=== PATIENT | female | born 1935 | race Hispanic/Latino ===

== ENCOUNTER 2016-10-27 10:29 | Inpatient (IN) | payer OTHER, MEDICARE ==
[~2016-10-27] VITALS: Ht 154.9 cm; Wt 40.0 kg
--- NOTE | 2016-10-27 11:36 | NUR ---
81 YO FEMALE BIBA FROM [facility], ACCORDING TO TRANSFER NOTE, PT WAS FOUND ON FLOOR. ? PT FELL TO FLOOR, UNKNOWN WHEN. PT REPORTS PAIN TO RIGHT CATHOLIC AREA. PT AWAKE, ALERT X 2. DISORIENTED TO TIME AND NAME OF HOSPITAL, PRESIDENTS NAME. PT HAS DRESSINGS INTACT TO BILATERAL LOWER LEGS, PT DID NOT WANT US TO TOUCH THEM. THIS RN DID NOT RECEIVE REPORT ON PT.
--- NOTE | 2016-10-27 11:37 | NUR ---
PT EVALUATED BY LEONELA SCHROEDER
--- NOTE | 2016-10-27 11:37 | NUR ---
PT SENT TO CT SCAN
--- NOTE | 2016-10-27 11:37 | ED GENERAL ADULT ---
History of Present Illness General Chief Complaint: Fall Stated Complaint: FALL Source: patient, EMS, W10 Exam Limitations: confusion Vital Signs & Intake/Output Vital Signs & Intake/Output Vital Signs Date Time Temp Pulse Resp B/P Pulse O2 O2 Flow FiO2 Ox Delivery Rate 10/27 1304 97.8 82 20 177/74 96 Room Air 10/27 1249 96 Room Air 10/27 1038 97.5 86 18 134/60 96 Allergies Coded Allergies: NO KNOWN ALLERGIES (10/27/16) Reconcile Medications Amlodipine Besylate 5 MG TABLET 1 TAB PO DAILY HIGH BLOOD PRESSURE (Reported) Calcium Citrate/Vitamin D3 (Citracal + D Maximum Caplet) 315 MG-250 UNIT TABLET 1 TAB PO BID HEALTH SUPPLEMENT (Reported) Famotidine (Pepcid) 20 MG TABLET 1 TAB PO BID HEARTBURN (Reported) Ferrous Sulfate (High Potency Iron) 134 MG (27 MG) TABLET 65 MG PO D HEALTH SUPPLEMENT (Reported) Furosemide (Lasix) 40 MG TABLET 1 TAB PO DAILY HEART HEALTH (Reported) Levothyroxine Sodium 25 MCG TABLET 1 TAB PO DAILY THYROID HEALTH (Reported) Prednisone 5 MG TABLET 1 TAB PO BID HEALTH SUPPLEMENT (Reported) Triage Nurses Notes Reviewed? yes Onset: Abrupt Duration: unknown duration Timing: recent history (?) No Modifying Factors: none HPI: 81-year-old female that was here prior to my arrival that was supposedly brought in by ambulance had a reported fall. Patient has baseline confusion in the room. It is unclear as to whether this is the patient's normal baseline. There is no family at bedside. There is no report from nurse. Patient reports that she is experiencing some head pain after a fall. Denies any other symptoms or pain anywhere else in his body. I am in the process of getting more collateral. (LEONELA BAÑUELOS) Past History Travel History Traveled to [place] past 21 day No Medical History Any Pertinent Medical History? see below for history (unknown) Surgical History Surgical History: unobtainable Psychosocial History What is your primary language [place]ian Family History Hx Contributory? No (LEONELA BAÑUELOS) Review of Systems Review of Systems Constitutional: Reports: no symptoms. EENTM: Reports: no symptoms. Respiratory: Reports: no symptoms. Cardiovascular: Reports: no symptoms. GI: Reports: no symptoms. Genitourinary: Reports: no symptoms. Musculoskeletal: Reports: no symptoms. Skin: Reports: no symptoms. Neurological/Psychological: Reports: see HPI. Hematologic/Endocrine: Reports: no symptoms. Immunologic/Allergic: Reports: no symptoms. All Other Systems: Reviewed and Negative (LEONELA BAÑUELOS) Physical Exam Physical Exam General Appearance: alert, awake Head: atraumatic, normal appearance Eyes: Bilateral: normal appearance, EOMI. Ears, Nose, Throat: normal ENT inspection, hearing grossly normal Neck: normal inspection Respiratory: normal breath sounds, no respiratory distress Cardiovascular: regular rate/rhythm Gastrointestinal: soft, non-tender Back: normal inspection Extremities: normal inspection, normal range of motion Neurologic/Psych: awake, alert, oriented x 3, normal gait Skin: intact, normal color Core Measures ACS in differential dx? Yes CVA/TIA Diagnosis: No Severe Sepsis Present: No Septic Shock Present: No (LEONELA BAÑUELOS) Progress Differential Diagnoses I considered the following diagnoses in my evaluation of the patient: Intracranial bleed, cervical fracture, UTI, sepsis, TIA, cardiac arrhythmia, looks a lot imbalance, anemia, concussion, fracture, Plan of Care: Orders Procedure Date/time Status Regular Diet 10/28 D Active Heart Healthy Diet 10/27 D Active Telemetry/Printing Press Operator 10/27 1458 Active Patient Data 10/27 1446 Active OXYGEN SETUP (GEN) 10/27 1443 Active Saline Lock 10/27 1443 Active Admit to inpatient 10/27 1443 Active Vital Signs 10/27 1443 Active Activity/Ambulation 10/27 1443 Active Code Status 10/27 1443 Active Intake & Output 10/27 1249 Active CULTURE,URINE 10/27 1128 Active URINALYSIS 10/27 1128 Complete TROPONIN LEVEL 10/27 1128 Complete COMPREHENSIVE METABOLIC PANEL 10/27 1128 Complete CBC WITHOUT DIFFERENTIAL 10/27 1128 Complete EKG 10/27 1128 Active Current Medications Sig/Jens Start time Last Medication Dose Stop Time Status Admin Oxycodone HCl 10 MG ONCE ONE 10/27 1515 CAN (Roxicodone) 10/27 1516 Laboratory Tests 10/27/16 1442: Urine Color YEL, Urine Clarity CLEAR, Urine pH 7.0, Ur Specific Dalhart 1.025, Urine Protein 100 H, Urine Ketones NEG, Urine Nitrite NEG, Urine Bilirubin NEG, Urine Urobilinogen 1.0, Ur Leukocyte Esterase TRACE H, Ur Microscopic SEDIMENT EXAMINED, Urine WBC 25-50 H, Ur Epithelial Cells RARE, Urine Hemoglobin NEG, Urine Glucose NEG 10/27/16 1228: Anion Gap 4 L, Estimated GFR 53 L, BUN/Creatinine Ratio 25.0, Glucose 86, Calcium 8.1 L, Total Bilirubin 0.9, AST 26, ALT 65 H, Alkaline Phosphatase 90, Troponin I 0.12 *H, Total Protein 6.3, Albumin 3.0 L, Globulin 3.3, Albumin/ Globulin Ratio 0.9 L, CBC w Diff MAN DIFF ORDERED, RBC 3.13 L, MCV 92.4, MCH 28.9, RDW 20.3 H, MPV 8.8, Gran % 86.9 H, Lymphocytes % 6.7 L, Monocytes % 5.5, Eosinophils % 0.4, Basophils % 0.5, Absolute Granulocytes 8.3 H, Segmented Neutrophils 83 H, Band Neutrophils 6 H, Absolute Lymphocytes 0.6 L, Lymphocytes 7 L, Monocytes 3, Absolute Monocytes 0.5, Absolute Eosinophils 0, Basophils 1, Absolute Basophils 0.1, Platelet Estimate ADEQUATE, Polychromasia 1 +, Hypochromic-Microcytic 1+, Poikilocytosis 1+, Stomatocytes 2+, PUBS MCHC 31.3 L, Fld Total RBCs Counted 100 Microbiology 10/27 1442 URINE ROUT: Urine Culture - RECD Diagnostic Imaging: Viewed by Me: Radiology Read, CT Scan. Discussed w/RAD: Radiology Read, CT Scan. Radiology Impression: EXAM TYPE: RAD - XRY-PORTABLE CHEST XRAY EXAMINATION: XR PORTABLE CHEST CLINICAL INFORMATION: Status post fall, confusion. COMPARISON: None. TECHNIQUE: AP erect portable chest x-ray. FINDINGS: The heart is moderately to markedly enlarged. The cardiomediastinal silhouette is within normal limits. There is mild cephalization of the pulmonary vasculature suggested with mild diffuse increase in interstitial markings, right side greater than left. Acute versus acute on chronic or chronic changes. Developing pulmonary vascular congestion and edema are possible, clinical correlation recommended, however there are no pleural effusions. There is moderate atherosclerotic aortic calcification with a tortuous descending thoracic aorta. The lungs and pleural spaces otherwise appear clear without focal infiltrate. There is no evidence of pneumothorax. There is diffuse osteopenia with degenerative changes in the left shoulder. IMPRESSION: The heart is enlarged, question mild pulmonary vascular congestion. Increased interstitial markings, acute versus chronic. In the acute setting an atypical or viral pneumonia for developing pulmonary edema are possible., EXAM TYPE: CAT - CT CERV SPINE WO IV CONTRAST; CT HEAD WO IV CONTRAST EXAMINATION: CT HEAD WITHOUT CONTRAST CT CERVICAL SPINE WITHOUT CONTRAST CLINICAL INFORMATION: 81-year-old woman with fall, headache, and neck pain. COMPARISON: None. TECHNIQUE: Imaging was performed from the skull base to vertex without intravenous administration of contrast. In addition, helical noncontrast CT imaging was acquired through the cervical spine and source images were reviewed along with axial reconstructions and sagittal and coronal MPRs. DLP: 902 mGy-cm FINDINGS: HEAD: No intracranial mass, hemorrhage, or midline shift is visualized. The ventricles and sulci are mildly prominent due to chronic volume loss. Mild chronic microvascular ischemic changes are seen throughout the supratentorial white matter as well. No extra- axial collections are identified. The paranasal sinuses and mastoid air cells are well aerated. Mild soft tissue swelling is noted at the right parietal convexity. CERVICAL SPINE: There is no evidence of acute cervical spine fracture. Vertebral bodies remain normal in height, intervertebral disc spaces are preserved, and alignment is anatomic. No pre- or paravertebral soft tissue abnormality is identified. Limited assessment of the lung apices is notable for mild nonspecific groundglass opacity at the right lung apex of uncertain chronicity. IMPRESSION: 1. No acute intracranial pathology. 2. No CT evidence of acute cervical spine fracture or traumatic subluxation. DICTATED BY: THOR COUGHLIN MD DATE/TIME DICTATED:10/27/161214 VEHICLE REFINISHER:DELANEY DATE/TIME TRANSCRIBED:10/27/161214 Initial ED EKG: normal p-waves, normal sinus rhythm, rate (86), nonspecific ST T wave chg, ST depression (v3,v4) (LEONELA BAÑUELOS) Departure Departure Disposition: STILL A PATIENT Condition: Stable Clinical Impression Primary Impression: Acute electrocardiogram changes Secondary Impressions: Troponin level elevated Referrals: GINO ALCALA,FADY Jeong (PCP/Family) Departure Forms: Customer Survey General Discharge Information Admission Note Spoke With: Patricia GUTIERREZ MD Documentation of Exam: Documentation of any treatments & extenuating circumstances including Concerns Regarding Discharge (functional status, medication knowledge or non-compliance, living conditions, etc.) that warrant an admission rather than observation: Patient will require cardiac telemetry. Cardiac consultation. Serial troponins. Dr. kc spoke with dr gutierrez. (LEONELA BAÑUELOS) PA/[employer] TE[employer]ER Co-Sign Statement Statement: ED Attending supervision documentation- x I saw and evaluated the patient. I have also reviewed all the pertinent lab results and diagnostic results. I agree with the findings and the plan of care as documented in the PA's/[employer] TE[employer]ER's documentation. [] I have reviewed the ED Record and agree with the PA's/[employer] TE[employer]ER's documentation. [] Additions or exceptions (if any) to the PAs/[employer] TEACHER's note and plan are summarized below: [] (JOANNE ALCALA,ZIYAD) Critical Care Note Critical Care Note Critical Care Time: non-applicable (LEONELA BAÑUELOS)
--- NOTE | 2016-10-27 12:21 | CT SCAN REPORT ---
EXAMINATION: CT HEAD WITHOUT CONTRAST CT CERVICAL SPINE WITHOUT CONTRAST CLINICAL INFORMATION: 81-year-old woman with fall, headache, and neck pain. COMPARISON: None. TECHNIQUE: Imaging was performed from the skull base to vertex without intravenous administration of contrast. In addition, helical noncontrast CT imaging was acquired through the cervical spine and source images were reviewed along with axial reconstructions and sagittal and coronal MPRs. DLP: 902 mGy-cm FINDINGS: HEAD: No intracranial mass, hemorrhage, or midline shift is visualized. The ventricles and sulci are mildly prominent due to chronic volume loss. Mild chronic microvascular ischemic changes are seen throughout the supratentorial white matter as well. No extra-axial collections are identified. The paranasal sinuses and mastoid air cells are well aerated. Mild soft tissue swelling is noted at the right parietal convexity. CERVICAL SPINE: There is no evidence of acute cervical spine fracture. Vertebral bodies remain normal in height, intervertebral disc spaces are preserved, and alignment is anatomic. No pre- or paravertebral soft tissue abnormality is identified. Limited assessment of the lung apices is notable for mild nonspecific groundglass opacity at the right lung apex of uncertain chronicity. IMPRESSION: 1. No acute intracranial pathology. 2. No CT evidence of acute cervical spine fracture or traumatic subluxation.
--- NOTE | 2016-10-27 12:30 | NUR ---
PT BACK FROM CT SCAN
--- NOTE | 2016-10-27 12:35 | RADIOLOGY REPORT ---
EXAMINATION: XR PELVIS CLINICAL INFORMATION: Fall. Confusion. COMPARISON: None TECHNIQUE: AP view of the pelvis. FINDINGS: Evaluation limited by overlapping loops of mildly distended gas-filled bowel. Diffuse osteopenia. No definite acute fracture of the pelvic rings or bilateral hips. Pubic symphysis and sacroiliac joints intact with mild degenerative changes seen in the sacroiliac joints. Sacrum is obscured and not adequately assessed. Aortoiliac and femoral arterial calcifications are seen. IMPRESSION: 1. Limited study. Sacrum obscured by overlying bowel. 2. Diffuse osteopenia. No definite acute fracture of the pelvic rings or the hips. 3. Prominent atherosclerotic vascular calcifications.
[2016-10-27 12:38] LABS: ABSOLUTE BASOPHIL COUNT 0.1 /CUMM (0.0-0.2); ABSOLUTE EOSINOPHIL COUNT 0 /CUMM (0.0-0.7); ABSOLUTE GRANULOCYTE CT 8.3 /CUMM (1.4-6.5); ABSOLUTE LYMPH COUNT 0.6 /CUMM (1.2-3.4); ABSOLUTE MONOCYTE COUNT 0.5 /CUMM (0.10-0.60); BASOPHIL % 0.5 % (0.0-2.0); EOSINOPHIL % 0.4 % (0-5); GRANULOCYTE % 86.9 % (42.2-75.2); HEMATOCRIT 28.9 % (37-47); MEAN CORPUSCULAR HGB 28.9 PG (27.0-31.0); MEAN CORPUSCULAR HGB CONC 31.3 G/DL (33.0-37.0); MEAN CORPUSCULAR VOLUME 92.4 FL (81.0-99.0); MEAN PLATELET VOLUME 8.8 FL (7.4-10.4); PLATELET COUNT 214 /CUMM (130-400); RBC DISTRIBUTION WIDTH 20.3 % (11.5-14.5); RED BLOOD CELL CT 3.13 /CUMM (4.20-5.40); WHITE BLOOD CELL COUNT 9.6 /CUMM (4.8-10.8)
[2016-10-27] MEDS ORDERED: AMLODIPINE BESYL5 M1 PO (13:18)
[2016-10-27] MEDS ORDERED: LASIX40 M1 PO (13:18)
[2016-10-27] MEDS ORDERED: CITRACAL + D M1 EACH PO (13:19)
[2016-10-27] MEDS ORDERED: LEVOTHYROXINE25 MCG PO (13:22)
[2016-10-27] MEDS ORDERED: HIGH POTENCY I134 MG PO (13:22)
--- NOTE | 2016-10-27 13:22 | RADIOLOGY REPORT ---
EXAMINATION: XR PORTABLE CHEST CLINICAL INFORMATION: Status post fall, confusion. COMPARISON: None. TECHNIQUE: AP erect portable chest x-ray. FINDINGS: The heart is moderately to markedly enlarged. The cardiomediastinal silhouette is within normal limits. There is mild cephalization of the pulmonary vasculature suggested with mild diffuse increase in interstitial markings, right side greater than left. Acute versus acute on chronic or chronic changes. Developing pulmonary vascular congestion and edema are possible, clinical correlation recommended, however there are no pleural effusions. There is moderate atherosclerotic aortic calcification with a tortuous descending thoracic aorta. The lungs and pleural spaces otherwise appear clear without focal infiltrate. There is no evidence of pneumothorax. There is diffuse osteopenia with degenerative changes in the left shoulder. IMPRESSION: The heart is enlarged, question mild pulmonary vascular congestion. Increased interstitial markings, acute versus chronic. In the acute setting an atypical or viral pneumonia for developing pulmonary edema are possible.
[2016-10-27] MEDS ORDERED: PREDNISONE5 M1 PO (13:23)
[2016-10-27] MEDS ORDERED: PEPCID20 M1 PO (13:24)
--- NOTE | 2016-10-27 13:25 | NUR ---
CRITICAL TEST RESULTS [id number] KI SPENCER 81 F TESTS AND RESULTS: TROPONIN 0.12 Results received and read back by: JASMINE BRANTLEY Results received date and time: 10/27/16 1405 The following provider was notified of the results, and read the results back: LEONELA SCHROEDER Notified date and time: 10/27/16 at 1319
--- NOTE | 2016-10-27 15:27 | History & Physical ---
See Addendum JANET ALCALA,[facility] 10/27/16 1527: General Information and [facility] MD Statement: I have seen and personally examined KI SPENCER and documented this H&P. The patient is a 81 year old F who presented with a patient stated chief complaint of [unwitnessed fall]. Source of Information: patient, family, W10 Exam Limitations: confusion History of Present Illness: Ms. Spencer is 81 years old lady with past medical history significant for congestive heart failure, hypertension, GERD, rheumatoid arthritis and polymyositis on prednisone, non-positional vertigo, partial thyroidectomy on Synthroid. Patient presented to ED from [facility] after an unwitnessed fall. Patient has baseline confusion, not oriented to time, she thinks that she fell down yesterday or the day before. Most of the history was obtained from the patient's son over the phone. Her son reported that patient was in her usual health status until early this month when she started to have lower extremity edema and was treated for cellulitis with Keflex, patient was discharged from [facility] to [facility] and last week she went back to [facility] because of abnormal liver function, no history of hepatitis. The family reported history of multiple falls, confusion that started after recent hospital admission earlier this month. Review of system is negative for chest pain, palpitation, cough, shortness of breath, abdominal pain, nausea or vomiting, diarrhea or constipation, weakness or dizziness. The patient has bilateral maxillary facial bruse after a recent fall last week. Family history is positive for heart problem Patient is an ex-smoker, quit smoking 10 years ago and was a smoker since age of [age] years old Occasional alcohol consumption, denied any history of drug use. Allergies/Medications Allergies: Coded Allergies: NO KNOWN ALLERGIES (10/27/16) Home Med list Amlodipine Besylate 5 MG TABLET 1 TAB PO DAILY HIGH BLOOD PRESSURE (Reported) Calcium Citrate/Vitamin D3 (Citracal + D Maximum Caplet) 315 MG-250 UNIT TABLET 1 TAB PO BID HEALTH SUPPLEMENT (Reported) Famotidine (Pepcid) 20 MG TABLET 1 TAB PO BID HEARTBURN (Reported) Ferrous Sulfate (High Potency Iron) 134 MG (27 MG) TABLET 65 MG PO D HEALTH SUPPLEMENT (Reported) Furosemide (Lasix) 40 MG TABLET 1 TAB PO DAILY HEART HEALTH (Reported) Levothyroxine Sodium 25 MCG TABLET 1 TAB PO DAILY THYROID HEALTH (Reported) Prednisone 5 MG TABLET 1 TAB PO BID HEALTH SUPPLEMENT (Reported) Past History Travel History Traveled to [facility] past 21 day No Medical History Cardiovascular: hypertension Gastrointestinal: GERD Musculoskeletal: CELLULITIS Endocrine: hypothyroidism Surgical History Surgical History: unobtainable Review of Systems Review of Systems Constitutional: Denies: see HPI. Exam & Diagnostic Data Last 24 Hrs of Vital Signs/I&O Vital Signs Date Time Temp Pulse Resp B/P Pulse O2 O2 Flow FiO2 Ox Delivery Rate 10/27 1719 97.4 85 20 152/65 95 Room Air 10/27 1304 97.8 82 20 177/74 96 Room Air 10/27 1249 96 Room Air 10/27 1038 97.5 86 18 134/60 96 Intake & Output 10/27 1600 10/27 0800 10/27 0000 Intake Total 0 Output Total Balance 0 Intake, IV 0 Patient 68.039 kg Weight Physical Exam General Appearance Alert, Cooperative, No Acute Distress Skin bilateral maxillary facial bruses that's resolving HEENT tenderness over the right parital region Neck Supple Cardiovascular Regular Rate, Normal S1, Normal S2, systolic murmur grade 2 Lungs Clear to Auscultation, Normal Air Movement Abdomen Normal Bowel Sounds, Soft, No Tenderness Neurological Normal Speech, Strength at 5/5 X4 Ext, Normal Tone, Sensation Intact, Cranial Nerves 3-12 NL, Reflexes 2+ Extremities No Clubbing, No Cyanosis, bilateral legs wrapped in bandage, very tender Assessment/Plan Assessment: Patient is 81 years old female with past medical history significant for hypertension, congestive heart failure (unknown type), GERD, particularly thyroidectomy on Synthroid, rheumatoid arthritis and polymyositis on prednisone who presented from [facility] after an unwitnessed fall. On admission vital signs are temperature 97.5, pulse 86 sinus rhythm, respiration 18, blood pressure 134/60, saturation 96% on room air Labs WBC 9.6, H&H 9.1/28.9, platelet 214, sodium 131, potassium 4.2, chloride 93 , bicarbonate 32, BUN 25, creatinine 1, glucose 86, troponin 0.12 EKG : normal p-waves, normal sinus rhythm, rate (86), ST depression in V5 and [address] head and cervical spine without contrast 1. No acute intracranial pathology. 2. No CT evidence of acute cervical spine fracture or traumatic subluxation. Pelvis x-ray 1. Limited study. Sacrum obscured by overlying bowel. 2. Diffuse osteopenia. No definite acute fracture of the pelvic rings or the hips. 3. Prominent atherosclerotic vascular calcifications. Chest x-ray The heart is enlarged, question mild pulmonary vascular congestion. Increased interstitial markings, acute versus chronic. In the acute setting an atypical or viral pneumonia for developing pulmonary edema are possible. Problem list -Unwitnessed fall -Elevated troponin with abnormal EKG findings -Hypertension -Hypothyroidism -Unwitnessed fall -Patient presented from assisted living facility after unwitnessed fall, complained of pain in her head -Images of the head and pelvis are negative for any intracranial hemorrhages or fracture -Patient has history of multiple falls -History of non-positional for vertigo -Consider orthostatic measurement -Falls precaution -PT evaluation -Elevated troponin with abnormal EKG findings -Patient troponin is 0.[address] depression in V5 and V6 about 0.04 millimeter, it's not clear if these changes are acute or chronic -Trending down troponin and EKG every 6 -Patient denied any chest pain or shortness of breath, diaphoresis, nausea -Patient has history of multiple fall -Aspirin 325 mg 1 dose and continue aspirin 81 daily -Start atorvastatin 20 mg daily -Lipid profile -Considere echo -Hypertension -Furosemide 40 by mouth daily -Hypothyroidism -Synthroid 0.25 mg daily -TSH, free T4 DVT prophylaxis Lovenox Diet heart healthy diet Code full As Ranked By This Provider Problem List: 1. Troponin level elevated Core Measures/Miscellaneous Acute Coronary Syndrome ACS Diagnosis: No Cerebrovascular Accident CVA/TIA Diagnosis: No Congestive Heart Failure CHF Diagnosis: No Venous Thromboembolism VTE Risk Factors: Age > 40 VTE Prophylaxis Ordered Inpt: Pharm- [facility] prophylaxis d/t: No contraindications No VTE Pharm Prophylaxis d/t: No contraindications VTE Diagnosis: No VTE Type: NONE VTE Confirmed by (Test): NONE Severe Sepsis Severe Sepsis Present: No Septic Shock Septic Shock Present: No Miscellaneous Documentation Attending Case Discussed With: Patricia HINOJOSA MD Primary Care Physician: FADY CHRISTIAN MD Patient sees these Specialists Rheumatology Level of Patient Care: Telemetry CARMEN STARR 10/27/16 1602: Exam & Diagnostic Data Diagnostic Data EKG Results SR, 86 ?ST depression at V4,V5 CXR Results IMPRESSION: The heart is enlarged, question mild pulmonary vascular congestion. Increased interstitial markings, acute versus chronic. In the acute setting an atypical or viral pneumonia for developing pulmonary edema are possible. Other Results Head CT:Cervical spine CT: IMPRESSION: 1. No acute intracranial pathology. 2. No CT evidence of acute cervical spine fracture or traumatic subluxation. Pelvis X-ray: IMPRESSION: 1. Limited study. Sacrum obscured by overlying bowel. 2. Diffuse osteopenia. No definite acute fracture of the pelvic rings or the hips. 3. Prominent atherosclerotic vascular calcifications. Resident Review Statement Resident Statement: examined this patient, discussed with internal grinding machine operator, agreed with internal grinding machine operator, discussed with family, reviewed EMR data (avail) Other Findings: is an 81 yo women with PMHx. Tension, benign positional vertigo, status post thyroidectomy currently on Synthroid, rheumatoid arthritis, polymyositis, presented to emergency department with a c/o of mechanical fall. Patient herself cannot provide detailed history secondary to her baseline confusion. We contacted her with F and her son. Patient was at [facility] earlier this month for bilateral lower extremity swelling found to have cellulitis treated with Keflex she completed the course at the hospital and [facility] she found to have abnormal liver function tests so she was admitted again to [facility] unknown etiology of elevated LFT, discharged back to same ECF. According to patient's son she had recurrent fall since earlier October this year, earlier this month she fell forward on her face with bilateral eye bruise. Today at [facility] she was found on the floor by nursing stuff they denies any Hx of LOC, seizure. Patient denies chest pain, palpitation, she report head lump from the fall, and she also complained of pain in B/L LE. Vitals/ Exam and labs and imaging as above. Assessment: -Mechanical fall -Positive troponin -History CHF -Hx. of B/L LE cellulitis recently treated with Keflex (Completed the course) -Mildly elevated ALT. -History of rheumatoid arthritis/polymyositis -S/P thyroidectomy on Synthroid Plan: * We'll admit the patient to telemetry floor * Cardiology consult obtained with Dr. Hinojosa * First set of troponin was positive. Will trend troponin and EKG, next set at 6 PM * We'll continue all of her home medication * Echocardiogram? Unless she had recent echocardiogram at [place] * May need to obtain records from her recent hospitalization at [place] * LFT tomorrow * CBC, BEP at a.m. Pain pathway: Tylenol as needed DVT prophylaxis SC Heparin She is full code ASHISH ALCALA,ILAN N 10/28/16 1248: Attending MD Review Statement Attending Statement Attending MD Statement: examined this patient, discuss w/resident/PA/WHITESMITH, agreed w/resident/PA/WHITESMITH, reviewed EMR data (avail), discussed with nursing, discussed with case mgmt, reviewed images, amended to note Attending Assessment/Plan: The patient was seen and examined by me. The chart was reviewed. Old records available reviewed. ECG reviewed. I agree with the plan as outlined and discussed with the house staff above.
--- NOTE | 2016-10-27 16:59 | NUR ---
[facility] ASSIGNMENT [phone]
--- NOTE | 2016-10-27 17:16 | NUR ---
CALLED ER TO OBTAIN REPORT, NURSE UNABLE TO ANSWER. PLEASE CALL [phone] WHEN POSSIBLE. THANK YOU
--- NOTE | 2016-10-27 17:31 | NUR ---
20 G NORAH PLACED IN LEFT FOREARM
--- NOTE | 2016-10-27 18:22 | NUR ---
REPEAT TROPONIN AND EKG DONE DISTRIBUTION CALLED TO TRANSFER PT
[2016-10-27 19:08] VITALS: BP 132/64
--- NOTE | 2016-10-27 19:44 | NUR ---
PT ARRIVED TO HOSPITAL WITH BILATERAL DRESSINGS TO [facility]INS, FROM PREVIOUS TREATMENT (AT [facility]) FOR CELLULITIS. MULTIPLE ATTEMPTS MADE TO REMOVE AND REPLACE DRESSINGS, PATIENT REFUSED EACH TIME. DATE ON DRSG IS 10/26 WOUND CARE EVAL ORDERED
[2016-10-27 23:14] VITALS: BP 128/58
[2016-10-28 07:47] LABS: ABSOLUTE BASOPHIL COUNT 0 /CUMM (0.0-0.2); ABSOLUTE EOSINOPHIL COUNT 0.1 /CUMM (0.0-0.7); ABSOLUTE GRANULOCYTE CT 6.4 /CUMM (1.4-6.5); ABSOLUTE LYMPH COUNT 0.9 /CUMM (1.2-3.4); ABSOLUTE MONOCYTE COUNT 0.3 /CUMM (0.10-0.60); BASOPHIL % 0.4 % (0.0-2.0); EOSINOPHIL % 1.4 % (0-5); GRANULOCYTE % 82.5 % (42.2-75.2); MEAN CORPUSCULAR HGB 29.4 PG (27.0-31.0); MEAN CORPUSCULAR HGB CONC 31.6 G/DL (33.0-37.0); MEAN CORPUSCULAR VOLUME 92.8 FL (81.0-99.0); MEAN PLATELET VOLUME 9.4 FL (7.4-10.4); PLATELET COUNT 193 /CUMM (130-400); RBC DISTRIBUTION WIDTH 20.8 % (11.5-14.5); RED BLOOD CELL CT 3.23 /CUMM (4.20-5.40); WHITE BLOOD CELL COUNT 7.7 /CUMM (4.8-10.8)
[2016-10-28 08:18] VITALS: BP 138/66
--- NOTE | 2016-10-28 09:37 | PN- Housestaff ---
See Addendum Subjective Follow-up For: Unwitnessed mechanical fall Tele-Events Since Last Visit: WPW, rate 73-106 Patient had run of V. tach 9 beats Subjective: Patient was seen and examined this morning, she is alert and cooperative, patient has baseline of confusion. She offered no complaints, no chest pain no palpitation, shortness of breath. The patient has bilateral lower extremity cellulitis that covered with bandages, she refuses anybody to touch her legs because of severe pain. Wound care consultation was placed yesterday, I called the wound care this morning to make sure they will evaluatethe wound. Review of Systems Constitutional: Denies: see HPI. Objective Last 24 Hrs of Vital Signs/I&O Vital Signs Date Time Temp Pulse Resp B/P Pulse O2 O2 Flow FiO2 Ox Delivery Rate 10/28 0818 98.5 79 18 138/66 99 Room Air 10/27 2314 97.9 76 20 128/58 95 Room Air 10/27 1934 Room Air 10/27 1908 98.0 83 20 132/64 95 Room Air 10/27 1853 Room Air Room Air 10/27 1719 97.4 85 20 152/65 95 Room Air 10/27 1304 97.8 82 20 177/74 96 Room Air 10/27 1249 96 Room Air 10/27 1038 97.5 86 18 134/60 96 Intake & Output 10/28 1600 10/28 0800 10/28 0000 Intake Total 60 250 Output Total 300 Balance -240 250 Intake, IV 10 10 Intake, Oral 50 240 Number 1 Bowel Movements Output, Urine 300 Patient 40.001 kg 40.001 kg Weight Physical Exam General Appearance: Alert, Cooperative, No Acute Distress Skin: bilateral maxillary bruse, resolving bilateral lower extermity wounds covered with bandages HEENT: Atraumatic, PERRLA, EOMI, Mucous Membr. moist/pink Neck: Supple Cardiovascular: Regular Rate, Normal S1, Normal S2, systolic murmur 2/6 Lungs: Normal Air Movement, bilateral basal crackles Abdomen: Normal Bowel Sounds, Soft, No Tenderness Neurological: Normal Speech, Strength at 5/5 X4 Ext, Normal Tone, Sensation Intact, Cranial Nerves 3-12 NL, Reflexes 2+ Extremities: No Edema, bilateral legs wraped in bandages, the patient refused examination Assessment/Plan Assessment: Assessment: Patient is 81 years old female with past medical history significant for hypertension, congestive heart failure (unknown type), GERD, particularly thyroidectomy on Synthroid, rheumatoid arthritis and polymyositis on prednisone who presented from [place] after an unwitnessed fall. EKG : normal p-waves, normal sinus rhythm, rate (86), ST depression in V5 and 6 Repeat EKG show delta wave of WPW Images CT head and cervical spine without contrast 1. No acute intracranial pathology. 2. No CT evidence of acute cervical spine fracture or traumatic subluxation. Pelvis x-ray 1. Limited study. Sacrum obscured by overlying bowel. 2. Diffuse osteopenia. No definite acute fracture of the pelvic rings or the hips. 3. Prominent atherosclerotic vascular calcifications. Chest x-ray The heart is enlarged, question mild pulmonary vascular congestion. Increased interstitial markings, acute versus chronic. In the acute setting an atypical or viral pneumonia for developing pulmonary edema are possible. Problem list -Unwitnessed fall -Elevated troponin with abnormal EKG findings -Hypertension -Hypothyroidism -Unwitnessed fall -Patient presented from assisted living facility after unwitnessed fall, complained of pain in her head -Images of the head and pelvis are negative for any intracranial hemorrhages or fracture -Patient has history of multiple falls -History of non-positional for vertigo -Consider orthostatic measurement -Falls precaution -PT evaluation -Elevated troponin with abnormal EKG findings -On Admission, troponin is 0.[address] depression in V5 and V6 about 0.04 millimeter, nonsignificant -Troponin 0.14, 0.14, 0.11 -Repeated EKG showed Delta wave in multiple leads suggestive for WPW -Patient denied any chest pain or shortness of breath, diaphoresis, nausea -Patient has history of multiple fall -Aspirin 325 mg 1 dose and continue aspirin 81 daily -Lipid Profile is within normal -Considere echo -Hypertension -Furosemide 40 by mouth daily -Hypothyroidism -Synthroid 0.25 mg daily -TSH 5.4, free T4 0.81 -Increase Synthroid to 0.5 mg daily -Bilateral lower limb cellulitis -Patient was recently treated for cellulitis at [facility] -Patient has both of her legs bandaged and she diffuse examination because of pain -Hold consultation was placed, I called the wound center today for evaluation DVT prophylaxis Lovenox Diet heart healthy diet Code full Problem List: 1. Troponin level elevated 2. Acute electrocardiogram changes Pain Ratin Pain Location: n/a Pain Goal: Pain 4 or less Pain Plan: See medication Tomorrow's Labs & Rationales: NELSON, CMP
--- NOTE | 2016-10-28 12:58 | NUR ---
PT WITH DRESSINGS TO BLE. REFUSES TO LET ANYONE UNDRESS WOUNDS. DR GONZALES AWARE. PT ALSO HAS RED/NONBLANCHING AREA TO COCCYX. WCE PLACED BY PREVIOUS RN LAST EVENING. SIZEWISE MATTRESS ORDERED BY THIS RN. DR GONZALES PLACED CALL TO WOUND CENTER AND SPOKE WITH SOMEONE RE: SEEING PT. STATED WOUND RN WILL BE IN TO SEE PT.
[2016-10-28 15:19] VITALS: BP 126/60
--- NOTE | 2016-10-28 15:57 | ECHOCARDIOGRAM REPORT ---
KI SPENCER Age: 81 : 1935 Gender: F Exam Date: 10/28/2016 10:52 Exam Location: 1 North Ht (in): 64 Wt (lb): 150 BSA: 1.77 BP: 132 / 64 Ordering Physician: ANUPAM GONZALES MD Referring Physician: ANUPAM GONZALES MD Technologist: Tobin Oro [facility] Room Number: 189-1 Indications: EVALUATION OF ASCENDING AORTA Rhythm: Sinus Technical Quality: Good FINDINGS Left Ventricle Normal size left ventricle. No obvious regional wall motion abnormalities. Left ventricular wall thickness increased. Normal left ventricular ejection fraction estimated at 55-60%. Right Ventricle Mild right ventricular dilatation. Right Atrium Right atrial dilatation. Left Atrium Moderate to severe left atrial dilatation. Mitral Valve Mitral valve thickened. Moderate mitral annular calcification. Moderate mitral regurgitation. Aortic Valve Trileaflet aortic valve. Diffuse thickening (sclerosis) of the aortic valve cusps without reduced excursion. Moderate aortic regurgitation. Tricuspid Valve Tricuspid valve not well visualized. Moderate tricuspid regurgitation. Tricuspid regurgitation jet eccentric. Right ventricular systolic pressure estimated to be elevated at 80 mmHg. Pulmonic Valve Pulmonic valve not well visualized, grossly normal. Mild pulmonic regurgitation. Pericardium No pericardial effusion. Left pleural effusion. Great Vessels Aortic root and proximal ascending aorta not well visualized, grossly normal. CONCLUSIONS 1. This was a technically difficult examination. 2. 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 The peak gradient across the valve is 14 mmHg with no evidence of significant valvular stenosis. Moderate aortic insufficiency is present. 3. Mitral leaflet thickening is present with moderate anular calcification and mitral insufficiency which is at least moderate in severity with moderate to severe left atrial enlargement. 4. There is no significant pericardial fluid present. 5. A left pleural effusion is noted. 6. The left ventricular chamber size is normal with mild to moderate concentric hypertrophy and a normal ejection fraction. 7. Mild enlargement of the right heart chambers is present with moderate, eccentric tricuspid insufficiency, mild pulmonic insufficiency, dilatation of the IVC and severe pulmonary hypertension with an estmated RV systolic pressure of 80 mmHg. Radha Farah M.D. (Electronically Signed) Final Date: 28 October 2016 15:57 MEASUREMENTS (Male / Female) Normal Values 2D ECHO LV Diastolic Diameter PLAX 4.2 cm 4.2 - 5.9 / 3.9 - 5.3 cm LV Systolic Diameter PLAX 2.5 cm 2.1 - 4.0 cm LV Fractional Shortening PLAX 40.5 % 25 - 46 % LV Ejection Fraction 2D Teich 71.6 % IVS Diastolic Thickness 1.3 cm LVPW Diastolic Thickness 1.4 cm LV Relative Wall Thickness 0.6 RV Internal Dim ED PLAX 3.2 cm 1.9 - 3.8 cm LVOT Diameter 1.6 cm Aortic Root Diameter 2.5 cm LA Systolic Diameter LX 5.1 cm 3.0 - 4.0 / 2.7 - 3.8 cm LA Volume 83.0 cm 18 - 58 / 22 - 52 cm Ascending Aorta Diameter 3.0 cm DOPPLER AV Peak Velocity 182.0 cm/s AV Peak Gradient 13.2 mmHg AV Mean Velocity 114.0 cm/s AV Mean Gradient 6.0 mmHg AV Velocity Time Integral 35.3 cm AI Deceleration Randall 344.0 cm/s AI Peak Velocity 392.0 cm/s AI Pressure Half Time 343.5 ms AI Peak Gradient 61.5 mmHg LVOT Peak Velocity 72.8 cm/s LVOT Peak Gradient 2.1 mmHg LVOT Mean Velocity 44.2 cm/s LVOT Mean Gradient 1.0 mmHg LVOT Velocity Time Integral 12.6 cm LVOT Stroke Volume 25.3 cm AV Area Cont Eq vti 0.7 cm AV Area Cont Eq pk 0.8 cm MV Peak Velocity 244.0 cm/s MV Peak Gradient 23.8 mmHg MV Mean Velocity 114.0 cm/s MV Mean Gradient 6.0 mmHg Mitral E Point Velocity 221.0 cm/s Mitral A Point Velocity 68.6 cm/s Mitral E to A Ratio 3.2 MV PHT Velocity 239.0 cm/s MV Deceleration Randall 1670.0 cm/s MV Pressure Half Time 42.9 ms MV Area PHT 5.1 cm MV Deceleration Time 225.0 ms MR Peak Velocity 617.0 cm/s MR Peak Gradient 152.3 mmHg TR Peak Velocity 426.0 cm/s TR Peak Gradient 72.6 mmHg Right Atrial Pressure 10.0 mmHg Pulmonary Artery Systolic Pressu 82.6 mmHg Right Ventricular Systolic Press 82.6 mmHg PV Peak Velocity 79.4 cm/s PV Peak Gradient 2.5 mmHg PV Mean Velocity 56.7 cm/s PV Mean Gradient 1.0 mmHg PV Velocity Time Integral 16.1 cm
--- NOTE | 2016-10-28 16:36 | Cons- Wound Care ---
General Information and HPI Consulting Request Date of Consult: 10/28/16 Requested By: Patricia HINOJOSA MD Reason for Consult: Bilateral lower extremity ulcers present on admission History of Present Illness: Patient is an 81-year-old with history of heart disease recently admitted for reported lower extremity cellulitis treated with Keflex now admitted after a fall found to have an abnormal troponin and congestive heart failure. She is unable to provide any history regarding the course of treatment of her lower extremity ulcers which have been present for an extended period of time. She is unaware of having been evaluated for underlying peripheral vascular disease Allergies/Medications Allergies: Coded Allergies: NO KNOWN ALLERGIES (10/27/16) Home Med List: Amlodipine Besylate 5 MG TABLET 1 TAB PO DAILY HIGH BLOOD PRESSURE (Reported) Calcium Citrate/Vitamin D3 (Citracal + D Maximum Caplet) 315 MG-250 UNIT TABLET 1 TAB PO BID HEALTH SUPPLEMENT (Reported) Famotidine (Pepcid) 20 MG TABLET 1 TAB PO BID HEARTBURN (Reported) Ferrous Sulfate (High Potency Iron) 134 MG (27 MG) TABLET 65 MG PO D HEALTH SUPPLEMENT (Reported) Furosemide (Lasix) 40 MG TABLET 1 TAB PO DAILY HEART HEALTH (Reported) Levothyroxine Sodium 25 MCG TABLET 1 TAB PO DAILY THYROID HEALTH (Reported) Prednisone 5 MG TABLET 1 TAB PO BID HEALTH SUPPLEMENT (Reported) Review of Systems Review of Systems: Noncontributory Past History Travel History Traveled to [place] past 21 day No Medical History Neurological: dementia Cardiovascular: hypertension Gastrointestinal: GERD Musculoskeletal: CELLULITIS Endocrine: hypothyroidism Surgical History Surgical History: unobtainable Psychosocial History Where Do You Live? Nursing Home Facility Smoking Status: Former Smoker Exam & Diagnostic Data Vital Signs and I&O Vital Signs Result Date Time Pulse Ox 100 10/28 1519 B/P 126/60 10/28 1519 O2 Delivery Room Air 10/28 1519 Temp 98.2 10/28 1519 Pulse 83 10/28 1519 Resp 17 10/28 1519 O2 Flow Rate Room Air 10/28 1105 Intake & Output 10/28 0000 10/27 1600 10/27 0800 Intake Total 250 0 Output Total Balance 250 0 Intake, IV 10 0 Intake, Oral 240 Patient 88 lb 2.99 oz 150 lb Weight Exam of lower extremity showed distal pulses to be absent. Exam of her left foot shows there to be a lateral left foot ulcer measuring 5 x 4 cm the thread and yellow fill over the posterior aspect of her left leg or to ulcers measuring 10 x 3 cm and 4.5 x 3.5 cm with red and yellow fill over the left lower extremity there are 2 posterior ulcers measuring 7 x 3 and 7 x 6 cm and yellow fill there is no exposed bone undermining or sinus tracking there does not appear to be significant lower extremity erythema or warmth. Assessment/Plan Impression/Plan: 81-year-old woman who likely has chronic venous stasis ulcers with suspected underlying peripheral vascular disease. Recommendation is made to obtain records from [place] as to whether there was evaluation of her distal circulation. If not bilateral arterial ultrasound would be appropriate. Wound care regimen should be daily cleansing and cover with nonadherent dressings Xeroform and gauze over dressing. Otherwise can be elevated and protected from pressure. Obtain nutritional evaluation Consult Acknowledgment - Thank you for your consult request.
--- NOTE | 2016-10-28 19:53 | Admission Certification ---
Admission Certification Certification Statement - As attending physician, I certify that at the time of - admission, based on clinical presentation, severity of - symptoms, need for further diagnostic testing and - therapeutic interventions, and risk of adverse outcomes - without in-hospital treatment, in my clinical assessment, - this patient requires an acute hospital stay for a minimum - of two nights or longer. I have also considered psychsocial - factors such as support system, advanced age, financial - issues, cognitive issues, and failed out-patient treatments, - past re-admission history, safety of patient, and lack of - compliance as applicable. Specific rationale supporting this admission is: 81 year old female with unwitnessed fall; possible syncope and abnormal ECG with elevated troponin.
[2016-10-28 22:42] VITALS: BP 124/50
[2016-10-29 07:59] VITALS: BP 132/62
[2016-10-29 07:59] LABS: ABSOLUTE BASOPHIL COUNT 0 /CUMM (0.0-0.2); ABSOLUTE EOSINOPHIL COUNT 0.1 /CUMM (0.0-0.7); ABSOLUTE GRANULOCYTE CT 6.1 /CUMM (1.4-6.5); ABSOLUTE MONOCYTE COUNT 0.4 /CUMM (0.10-0.60); BASOPHIL % 0.3 % (0.0-2.0); EOSINOPHIL % 1.1 % (0-5); GRANULOCYTE % 79.5 % (42.2-75.2); HEMATOCRIT 30.4 % (37-47); MEAN CORPUSCULAR HGB 29.7 PG (27.0-31.0); MEAN CORPUSCULAR HGB CONC 32.3 G/DL (33.0-37.0); MEAN CORPUSCULAR VOLUME 91.9 FL (81.0-99.0); MEAN PLATELET VOLUME 9.4 FL (7.4-10.4); PLATELET COUNT 213 /CUMM (130-400); RBC DISTRIBUTION WIDTH 20.1 % (11.5-14.5); WHITE BLOOD CELL COUNT 7.6 /CUMM (4.8-10.8)
--- NOTE | 2016-10-29 08:47 | PN- Housestaff ---
Subjective Follow-up For: Unwitnessed fall WPW Acute kidney injury Malnutrition Tele-Events Since Last Visit: WPW with delta wave Heart rate 72-90 Subjective: Patient was seen and examined today, no acute distress, she is oriented to person only, reported nausea but no vomiting, denied abdominal pain, diarrhea. Patient denied chest pain, palpitation, shortness of breath, cough, headache. No overnight events reported by the nurse. Vital signs are stable Review of Systems Constitutional: Denies: see HPI. Objective Last 24 Hrs of Vital Signs/I&O Vital Signs Date Time Temp Pulse Resp B/P Pulse O2 O2 Flow FiO2 Ox Delivery Rate 10/29 1542 98.1 92 20 152/60 100 Nasal 2.0L Cannula 10/29 0800 Nasal 2.0L Cannula 10/29 0759 96.5 80 18 132/62 99 Nasal 2.0L Cannula 10/29 0000 100 Nasal 2.0L Cannula 10/28 2242 98.6 84 18 124/50 96 Nasal Cannula Intake & Output 10/29 1600 10/29 0800 10/29 0000 Intake Total 500 50 520 Output Total 250 550 Balance 250 50 -30 Intake, IV 500 0 Intake, Oral 50 520 Number 0 Bowel Movements Output, Urine 250 550 Physical Exam General Appearance: Alert, Cooperative, No Acute Distress, orianted to person Skin: No Rashes, No Breakdown Cardiovascular: Regular Rate, Normal S1, Normal S2, No Murmurs Lungs: Clear to Auscultation, Normal Air Movement Abdomen: Normal Bowel Sounds, Soft, No Tenderness Neurological: Normal Speech, Strength at 5/5 X4 Ext, Normal Tone, Sensation Intact, Cranial Nerves 3-12 NL, Reflexes 2+ Extremities: No Clubbing, No Cyanosis, tender bilateral lower legs and feet, in bandages. . patient refused examination Assessment/Plan Assessment: Assessment: Patient is 81 years old female with past medical history significant for hypertension, congestive heart failure (unknown type), GERD, particularly thyroidectomy on Synthroid, rheumatoid arthritis and polymyositis on prednisone who presented from [place] after an unwitnessed fall. EKG : normal p-waves, normal sinus rhythm, rate (86), ST depression in V5 and 6 Repeat EKG show delta wave of WPW Images CT head and cervical spine without contrast 1. No acute intracranial pathology. 2. No CT evidence of acute cervical spine fracture or traumatic subluxation. Pelvis x-ray 1. Limited study. Sacrum obscured by overlying bowel. 2. Diffuse osteopenia. No definite acute fracture of the pelvic rings or the hips. 3. Prominent atherosclerotic vascular calcifications. Chest x-ray The heart is enlarged, question mild pulmonary vascular congestion. Increased interstitial markings, acute versus chronic. In the acute setting an atypical or viral pneumonia for developing pulmonary edema are possible. Problem list -Unwitnessed fall -Elevated troponin with abnormal EKG findings -Hypertension -Hypothyroidism -Acute kidney injury -Unwitnessed fall -Patient presented from assisted living facility after unwitnessed fall, complained of pain at right parietal region of skull -Images of the head and pelvis are negative for any intracranial hemorrhages or fracture -Patient has history of multiple falls -History of non-positional vertigo -Orthostatic measurement (patient refused toady) pending -Falls precaution -PT evaluation; recommendation for short-term rehabilitation -Nutritional evaluation; patient meets the nutrition guidelines for moderate protein calorie malnutrition based on BMI -Elevated troponin with abnormal EKG findings -On Admission, troponin is 0.[address] depression in V5 and V6 about 0.04 millimeter, nonsignificant -Troponin 0.14, 0.14, 0.11 -Repeated EKG showed Delta wave in multiple leads suggestive for WPW -Patient denied any chest pain or shortness of breath, diaphoresis, nausea -Lipid Profile is within normal -Obtaining medical records from [facility], today I faxed the medical records department at [facility] 4 times(fax sheet in the chart) and called the office 5 times, yet, they did not fax the records today -Pulmonary consultation in a.m. for pulmonary hypertension -Echo 10/28/16 1. This was a technically difficult examination. 2. 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 The peak gradient across the valve is 14 mmHg with no evidence of significant valvular stenosis. Moderate aortic insufficiency is present. 3. Mitral leaflet thickening is present with moderate anular calcification and mitral insufficiency which is at least moderate in severity with moderate to severe left atrial enlargement. 4. There is no significant pericardial fluid present. 5. A left pleural effusion is noted. 6. The left ventricular chamber size is normal with mild to moderate concentric hypertrophy and a normal ejection fraction. 7. Mild enlargement of the right heart chambers is present with moderate, eccentric tricuspid insufficiency, mild pulmonic insufficiency, dilatation of the IVC and severe pulmonary hypertension with an estmated RV systolic pressure of 80 mmHg. -Hypertension -Furosemide 40 by mouth daily -Hypothyroidism -Synthroid 0.25 mg daily -TSH 5.4, free T4 0.81 -Continue Synthroid to 0.5 mg daily -Bilateral lower limb cellulitis -Patient was recently treated for cellulitis at [facility] -Patient has both of her legs bandaged and she diffuse examination because of pain -Wound consultation was obtained; chronic venostasis ulcer, recommendation to obtain records from [facility]. -Daily dressing nonadherent dressings Xeroform and gauze over dressing -We'll consider bilateral arterial ultrasound tomorrow if we still don't get the records -Acute kidney injury -Today BUN raised from 30<25, creatinine 1.4<1 -Hold Lasix -Bolus of D5W 500 mL -Follow-up BUN/creatinine tomorrow -Deferred doing CTA chest today because worsening renal function DVT prophylaxis Lovenox Diet heart healthy diet Code full Problem List: 1. Acute electrocardiogram changes 2. Troponin level elevated 3. Malnutrition 4. Acute kidney injury Pain Ratin Pain Location: N/A Pain Goal: Pain 4 or less Pain Plan: see medication Tomorrow's Labs & Rationales: CBC, CMP
--- NOTE | 2016-10-29 12:15 | PN- Cardiology ---
Subjective Subjective: The patient appears to be about the same clinically. She offers no new complaints. Objective Vital Signs and I&Os Vital Signs Date Time Temp Pulse Resp B/P Pulse O2 O2 Flow FiO2 Ox Delivery Rate 10/29 0800 Nasal 2.0L Cannula 10/29 0759 96.5 80 18 132/62 99 Nasal 2.0L Cannula 10/29 0000 100 Nasal 2.0L Cannula 10/28 2242 98.6 84 18 124/50 96 Nasal Cannula 10/28 1600 100 Nasal 2.0L Cannula 10/28 1519 98.2 83 17 126/60 100 Room Air Intake & Output 10/29 1600 10/29 0800 10/29 0000 10/28 1600 10/28 0800 10/28 0000 Intake Total 50 520 60 250 Output Total 550 300 Balance 50 -30 -240 250 Intake, IV 0 10 10 Intake, Oral 50 520 50 240 Number 0 1 Bowel Movements Output, Urine 550 300 Patient 88 lb 2.99 oz 88 lb 2.99 oz Weight Physical Exam: General Appearance: Alert, Cooperative, No Acute Distress Skin: bilateral maxillary bruse, resolving bilateral lower extermity wounds covered with bandages HEENT: Atraumatic, PERRLA, EOMI, Mucous Membr. moist/pink Neck: Supple Cardiovascular: Regular Rate, Normal S1, Normal S2, systolic murmur 2/6 Lungs: Normal Air Movement, bilateral basal crackles Abdomen: Normal Bowel Sounds, Soft, No Tenderness Neurological: Normal Speech, Strength at 5/5 X4 Ext, Normal Tone, Sensation Intact, Cranial Nerves 3-12 NL, Reflexes 2+ Extremities: 1+ Edema, bilateral legs wraped in bandages, the patient refused examination Current Medications: Current Medications Sig/Jens Start time Last Medication Dose Route Stop Time Status Admin Acetaminophen 0 .STK-MED ONE 10/28 1657 DC PO Acetaminophen 650 MG Q4-6 PRN PRN 10/27 1545 AC 10/28 PO 1157 Calcium/Vitamin D 250 MG DAILY 10/28 1000 AC 10/28 PO 1159 Dextrose/Water 500 ML BOLUS ONE 10/29 0930 DC IV 10/29 1029 Famotidine 20 MG BID 10/27 2200 AC 10/28 PO 2105 Ferrous Sulfate 325 MG DAILY 10/28 1000 AC 10/28 PO 1158 Furosemide 40 MG DAILY 10/28 1000 DC 10/28 PO 1158 Heparin Sodium 5,000 UNIT Q8 10/27 2199 AC 10/29 (Porcine) SC 0625 Levothyroxine Sodium 0.05 MG DAILY AC 10/29 0700 AC 10/29 PO 0622 Levothyroxine Sodium 0.025 MG DAILY AC 10/28 0700 DC 10/28 PO 0608 Metoclopramide HCl 5 MG AC 10/29 1200 AC 10/29 PO 1008 Patient Medication 1 ED ONE ONE 10/28 1400 DC Teaching ED 10/28 1401 Potassium Chloride 40 MEQ ONCE ONE 10/28 1245 DC 10/28 PO 10/28 1246 1353 Prednisone 5 MG DAILY 10/28 1000 AC 10/28 PO 1157 Results Last 48 Hrs of Labs/Mics: Laboratory Tests 10/29/16 0635: Anion Gap 7, Estimated GFR 36 L, BUN/Creatinine Ratio 21.4, Magnesium 2.1, CBC w Diff NO MAN DIFF REQ, RBC 3.30 L, MCV 91.9, MCH 29.7, RDW 20.1 H, MPV 9.4, Gran % 79.5 H, Lymphocytes % 13.5 L, Monocytes % 5.6, Eosinophils % 1.1, Basophils % 0.3, Absolute Granulocytes 6.1, Absolute Lymphocytes 1.0 L, Absolute Monocytes 0.4, Absolute Eosinophils 0.1, Absolute Basophils 0, PUBS MCHC 32.3 L 10/28/16 0937: Troponin I 0.11 *H 10/28/16 0632: Anion Gap 4 L, Estimated GFR 53 L, BUN/Creatinine Ratio 25.0, CBC w Diff NO MAN DIFF REQ, RBC 3.23 L, MCV 92.8, MCH 29.4, RDW 20.8 H, MPV 9.4, Gran % 82.5 H, Lymphocytes % 11.4 L, Monocytes % 4.3, Eosinophils % 1.4, Basophils % 0.4, Absolute Granulocytes 6.4, Absolute Lymphocytes 0.9 L, Absolute Monocytes 0.3, Absolute Eosinophils 0.1, Absolute Basophils 0, PUBS MCHC 31.6 L 10/28/16 0035: Troponin I 0.14 *H 10/27/16 1830: Troponin I 0.14 *H 10/27/16 1442: Urine Color YEL, Urine Clarity CLEAR, Urine pH 7.0, Ur Specific [place] 1.025, Urine Protein 100 H, Urine Ketones NEG, Urine Nitrite NEG, Urine Bilirubin NEG, Urine Urobilinogen 1.0, Ur Leukocyte Esterase TRACE H, Ur Microscopic SEDIMENT EXAMINED, Urine WBC 25-50 H, Ur Epithelial Cells RARE, Urine Hemoglobin NEG, Urine Glucose NEG 10/27/16 1228: Anion Gap 4 L, Estimated GFR 53 L, BUN/Creatinine Ratio 25.0, Glucose 86, Calcium 8.1 L, Total Bilirubin 0.9, AST 26, ALT 65 H, Alkaline Phosphatase 90, Troponin I 0.12 *H, Total Protein 6.3, Albumin 3.0 L, Globulin 3.3, Albumin/ Globulin Ratio 0.9 L, Triglycerides 100, Cholesterol 172, LDL Cholesterol, Calc 93, HDL Cholesterol 59, Cholesterol/HDL Ratio 3, TSH 5.410 H, Free T4 0.81 L, CBC w Diff MAN DIFF ORDERED, RBC 3.13 L, MCV 92.4, MCH 28.9, RDW 20.3 H, MPV 8.8, Gran % 86.9 H, Lymphocytes % 6.7 L, Monocytes % 5.5, Eosinophils % 0.4, Basophils % 0.5, Absolute Granulocytes 8.3 H, Segmented Neutrophils 83 H, Band Neutrophils 6 H, Absolute Lymphocytes 0.6 L, Lymphocytes 7 L, Monocytes 3, Absolute Monocytes 0.5, Absolute Eosinophils 0, Basophils 1, Absolute Basophils 0.1, Platelet Estimate ADEQUATE, Polychromasia 1+, Hypochromic-Microcytic 1+, Poikilocytosis 1+, Stomatocytes 2+, PUBS MCHC 31.3 L, Fld Total RBCs Counted 100 Microbiology 10/27 1442 URINE ROUT: Urine Culture - COMP Assessment/Plan Assessment/Plan Assessment: 1. Unwitnessed fall 2. Minimally elevated troponin with mild ECG abnormalities 3. Chronic lower extremity edema with probable venous insufficiency and stasis changes with stasis ulcers 4. Severe pulmonary hypertension noted on echocardiogram of unclear etiology- the patient does have evidence of left heart disease with moderate aortic and mitral insufficiency. These may be contributing to her pulmonary hypertension, however, the severity of pulmonary hypertension seems to be out of proportion to her left heart disease. 5. Hypertension 6. Hypothyroidism 7. Dementia 8. Reported history of congestive heart failure 9. History of rheumatoid arthritis and polymyositis on prednisone therapy 10. Multi-valvular heart disease with moderate aortic insufficiency, moderate tricuspid insufficiency and mitral insufficiency which is at least moderate in severity with severe left atrial enlargement. 11. Mild acute renal insufficiency Recommendations: -Continue as per the wound care team recommendations -Hold diuretics for today -Follow-up BUN, creatinine, etc. in the morning -Please attempt to obtain all [place] records today for review. -In view of the patient's severe unexplained pulmonary hypertension, she will likely need a CTA of the chest at some point to rule out the possibility of chronic thromboembolic disease or underlying interstitial lung disease, etc. to better explain her pulmonary hypertension unless these were already performed at [place]. -If the records are not available today, please obtain a pulmonary consult to help guide us with respect to further evaluation for her pulmonary hypertension. Continue telemetry? Yes
[2016-10-29 15:42] VITALS: BP 152/60
[2016-10-29 22:00] VITALS: BP 120/80
[2016-10-30 07:47] LABS: ABSOLUTE BASOPHIL COUNT 0 /CUMM (0.0-0.2); ABSOLUTE EOSINOPHIL COUNT 0 /CUMM (0.0-0.7); ABSOLUTE GRANULOCYTE CT 8.6 /CUMM (1.4-6.5); ABSOLUTE LYMPH COUNT 0.7 /CUMM (1.2-3.4); ABSOLUTE MONOCYTE COUNT 0.4 /CUMM (0.10-0.60); BASOPHIL % 0.4 % (0.0-2.0); EOSINOPHIL % 0.3 % (0-5); HEMATOCRIT 32.1 % (37-47); MEAN CORPUSCULAR HGB 29.5 PG (27.0-31.0); MEAN CORPUSCULAR HGB CONC 31.9 G/DL (33.0-37.0); MEAN CORPUSCULAR VOLUME 92.8 FL (81.0-99.0); MEAN PLATELET VOLUME 8.9 FL (7.4-10.4); PLATELET COUNT 209 /CUMM (130-400); RBC DISTRIBUTION WIDTH 20.3 % (11.5-14.5); RED BLOOD CELL CT 3.46 /CUMM (4.20-5.40); WHITE BLOOD CELL COUNT 9.8 /CUMM (4.8-10.8)
[2016-10-30 08:27] LABS: GRANULOCYTE % 87.8 % (42.2-75.2)
[2016-10-30 09:03] VITALS: BP 142/62
--- NOTE | 2016-10-30 09:33 | PN- Housestaff ---
See Addendum Subjective Follow-up For: Unwitnessed fall WPW Acute kidney injury Malnutrition Tele-Events Since Last Visit: Sinus rhythm heart rate 148-150 SVT Subjective: Patient was seen and examined this morning, patient alert oriented to person. No overnight events reported by the patient or the nurses. No acute distress, vital signs are stable. Review of Systems Constitutional: Denies: no symptoms. Objective Last 24 Hrs of Vital Signs/I&O Vital Signs Date Time Temp Pulse Resp B/P Pulse O2 O2 Flow FiO2 Ox Delivery Rate 10/30 1600 97.8 82 20 118/78 99 Nasal 3.0L Cannula 10/30 0903 97.7 90 18 142/62 93 Nasal 2.0L Cannula 10/30 0800 Nasal 2.0L Cannula Intake & Output 10/30 1600 10/30 0800 10/30 0000 Intake Total 480 100 100 Output Total 600 150 Balance -120 -50 100 Intake, Oral 480 100 100 Number 1 1 Bowel Movements Output, Urine 600 150 Physical Exam General Appearance: Alert, Cooperative, No Acute Distress Skin: No Rashes, No Breakdown, No Significant Lesion HEENT: Atraumatic, PERRLA, EOMI, Mucous Membr. moist/pink Neck: Supple Cardiovascular: Regular Rate, Normal S1, Normal S2, No Murmurs Lungs: Clear to Auscultation, Normal Air Movement Abdomen: Normal Bowel Sounds, Soft, No Tenderness Neurological: Normal Speech, Strength at 5/5 X4 Ext, Normal Tone, Sensation Intact, Cranial Nerves 3-12 NL, Reflexes 2+ Extremities: bilateral lower leg wrapped in bandages, patient refused examination Assessment/Plan Assessment: Assessment: Patient is 81 years old female with past medical history significant for hypertension, congestive heart failure (unknown type), GERD, particularly thyroidectomy on Synthroid, rheumatoid arthritis and polymyositis on prednisone who presented from [place] after an unwitnessed fall. EKG : normal p-waves, normal sinus rhythm, rate (86), ST depression in V5 and 6 Repeat EKG show delta wave of WPW Images CT head and cervical spine without contrast 1. No acute intracranial pathology. 2. No CT evidence of acute cervical spine fracture or traumatic subluxation. Pelvis x-ray 1. Limited study. Sacrum obscured by overlying bowel. 2. Diffuse osteopenia. No definite acute fracture of the pelvic rings or the hips. 3. Prominent atherosclerotic vascular calcifications. Chest x-ray The heart is enlarged, question mild pulmonary vascular congestion. Increased interstitial markings, acute versus chronic. In the acute setting an atypical or viral pneumonia for developing pulmonary edema are possible. Problem list -Unwitnessed fall -Elevated troponin with abnormal EKG findings -Hypertension -Hypothyroidism -Acute kidney injury -Unwitnessed fall -Patient presented from assisted living facility after unwitnessed fall, complained of pain at right parietal region of skull -Images of the head and pelvis are negative for any intracranial hemorrhages or fracture -Patient has history of multiple falls -History of non-positional vertigo -Orthostatic measurement (patient refused toady) pending -Falls precaution -PT evaluation; recommendation for short-term rehabilitation -Nutritional evaluation; patient meets the nutrition guidelines for moderate protein calorie malnutrition based on BMI -Elevated troponin with abnormal EKG findings -On Admission, troponin is 0.[address] depression in V5 and V6 about 0.04 millimeter, nonsignificant -Troponin 0.14, 0.14, 0.11 -Repeated EKG showed Delta wave in multiple leads suggestive for WPW -Patient denied any chest pain or shortness of breath, diaphoresis, nausea -Lipid Profile is within normal -Medical records from [facility] was obtained, Echo cardiogram was done 10/10/2016 shows moderate pulmonary hypertension -Pulmonary consultation was placed Dr. Lloyd -Echo 10/28/16 1. This was a technically difficult examination. 2. 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 The peak gradient across the valve is 14 mmHg with no evidence of significant valvular stenosis. Moderate aortic insufficiency is present. 3. Mitral leaflet thickening is present with moderate anular calcification and mitral insufficiency which is at least moderate in severity with moderate to severe left atrial enlargement. 4. There is no significant pericardial fluid present. 5. A left pleural effusion is noted. 6. The left ventricular chamber size is normal with mild to moderate concentric hypertrophy and a normal ejection fraction. 7. Mild enlargement of the right heart chambers is present with moderate, eccentric tricuspid insufficiency, mild pulmonic insufficiency, dilatation of the IVC and severe pulmonary hypertension with an estmated RV systolic pressure of 80 mmHg. -Hypertension -Furosemide 40 by mouth daily -Hypothyroidism -Synthroid 0.25 mg daily -TSH 5.4, free T4 0.81 -Continue Synthroid to 0.5 mg daily -Bilateral lower limb cellulitis -Patient was recently treated for cellulitis at [facility] -Patient has both of her legs bandaged and she diffuse examination because of pain -Wound consultation was obtained; chronic venostasis ulcer, recommendation to obtain records from [facility]. -Daily dressing nonadherent dressings Xeroform and gauze over dressing -Bilateral venous Doppler negative for DVT -Acute kidney injury -Today BUN raised from 28<30<25, creatinine 1.2<1.4<1 -Hold Lasix -Bolus of D5W 500 mL -Follow-up BUN/creatinine tomorrow -Deferred doing CTA chest today because worsening renal function -Patient complained of nausea, abdomen x-ray exclude signs of obstruction DVT prophylaxis Lovenox Diet heart healthy diet Code full Problem List: 1. Malnutrition 2. Acute kidney injury 3. Troponin level elevated 4. Acute electrocardiogram changes Pain Ratin Pain Location: bilateral lower extermities Pain Goal: Pain 4 or less Pain Plan: see medication Tomorrow's Labs & Rationales: CBC, CMP
--- NOTE | 2016-10-30 12:04 | RADIOLOGY REPORT ---
EXAMINATION: XR ABDOMEN CLINICAL INDICATION: 81-year-old woman with nausea and abdominal distention. COMPARISON: 10/27/2016 radiographs TECHNIQUE: Supine AP film of the pelvis was obtained. FINDINGS: Fairly extensive gas and fecal matter seen throughout large bowel loops. There is a fair amount of gas within mildly distended small bowel loops as well. The appearance is similar to films from 3 days ago. Free peritoneal air is thought clearly identified, although can be difficult to exclude on a supine film. IMPRESSION: Nonobstructive bowel gas pattern.
[2016-10-30 16:00] VITALS: BP 118/78
--- NOTE | 2016-10-30 16:37 | ULTRASOUND REPORT ---
EXAMINATION: US TRIPLEX LOWER EXTREMITY, BILATERAL CLINICAL INFORMATION: Shortness of breath. COMPARISON: None. TECHNIQUE: Color-flow triplex imaging with spectral analysis and compression Doppler were performed on the bilateral lower extremities. FINDINGS: Respiratory variation, normal compression and augmented flow are noted throughout the bilateral lower extremities. The visualized common femoral, femoral, profunda femoral, popliteal and midcalf peroneal and posterior tibial venous segments demonstrate no evidence of deep venous thrombosis. There are no Persaud's cysts. IMPRESSION: Normal triplex scan without evidence of deep venous thrombosis involving the bilateral lower extremities.
[2016-10-30 22:00] VITALS: BP 120/60
--- NOTE | 2016-10-30 23:03 | PN- Att Addend ---
Attending Addendum Attending Brief Note Echo: 1. This was a technically difficult examination. 2. 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 The peak gradient across the valve is 14 mmHg with no evidence of significant valvular stenosis. Moderate aortic insufficiency is present. 3. Mitral leaflet thickening is present with moderate anular calcification and mitral insufficiency which is at least moderate in severity with moderate to severe left atrial enlargement. 4. There is no significant pericardial fluid present. 5. A left pleural effusion is noted. 6. The left ventricular chamber size is normal with mild to moderate concentric hypertrophy and a normal ejection fraction. 7. Mild enlargement of the right heart chambers is present with moderate, eccentric tricuspid insufficiency, mild pulmonic insufficiency, dilatation of the IVC and severe pulmonary hypertension with an estmated RV systolic pressure of 80 mmHg. Radha Farah M.D. (Electronically Signed) Final Date: 28 October 2016 15:57 Laboratory Tests 10/30/16 0710: Anion Gap 7, Estimated GFR 43 L, BUN/Creatinine Ratio 23.3, Magnesium 2.0, CBC w Diff NO MAN DIFF REQ, RBC 3.46 L, MCV 92.8, MCH 29.5, RDW 20.3 H, MPV 8.9, Gran % 87.8 H, Lymphocytes % 7.2 L, Monocytes % 4.3, Eosinophils % 0.3, Basophils % 0.4, Absolute Granulocytes 8.6 H, Absolute Lymphocytes 0.7 L, Absolute Monocytes 0.4, Absolute Eosinophils 0, Absolute Basophils 0, PUBS MCHC 31.9 L 1. Unwitnessed fall 2. Minimally elevated troponin with mild ECG abnormalities 3. Chronic lower extremity edema with probable venous insufficiency and stasis changes with stasis ulcers 4. Severe pulmonary hypertension noted on echocardiogram of unclear etiology- the patient does have evidence of left heart disease with moderate aortic and mitral insufficiency. These may be contributing to her pulmonary hypertension, however, the severity of pulmonary hypertension seems to be out of proportion to her left heart disease. 5. Hypertension 6. Hypothyroidism 7. Dementia 8. Reported history of congestive heart failure 9. History of rheumatoid arthritis and polymyositis on prednisone therapy 10. Multi-valvular heart disease with moderate aortic insufficiency, moderate tricuspid insufficiency and mitral insufficiency which is at least moderate in severity with severe left atrial enlargement. 11. Mild acute renal insufficiency 12. Mild hyponatremia 12. Hx RA/polymyositis Patient HD status is stable. Telemetry shows SR with ? WAP, no sustained VT. Recent [place] records were reviewed, I do not see evidence of pulmonary HTN evaluation. LE wounds being followed by wound care. No evidence of CHF at this time. Monitor volume status closely. Follow metabolic panels. Review of [place] records did not seem to evaluate for pulmonary HTN. Will likely need V/Q scan. Given Rheumatolgic hx may need additional Rheum. eval in the setting of Pulmonary HTN. Monitor Na trend. Keep on telemetry. No evidence of CHF at this time. Echo report as above. Normal EF with LVH and pulmonary HTN. Some of the pulmonary HTN work-up will be arranged after discharge. She agrees to closer outpatient follow-up, admits to not having regular medical follow-up but is willing to have closer follow-up after discharge. Plan for elective Pulmonary consult in the near future. We did obtain LE dopplers today, negative for DVT. Abd Xray was benign. No evidence of surgical abdomen by my exam today. Mihir Silver MD [facility]
--- NOTE | 2016-10-31 07:46 | PN- Housestaff ---
JONATHAN ALCALA,[facility] 10/31/16 0746: Subjective Follow-up For: Unwitnessed fall WPW Acute kidney injury Malnutrition Subjective: Patient seen and examined this morning, she was lying in bed in no acute distress. Remains afebrile, on 3 L of nasal cannula oxygen satting high 90s, blood pressure systolic ranging between 120-160, otherwise no other complaints. Review of Systems Constitutional: Reports: see HPI. Objective Last 24 Hrs of Vital Signs/I&O Vital Signs Date Time Temp Pulse Resp B/P Pulse O2 O2 Flow FiO2 Ox Delivery Rate 10/31 0814 97.9 91 22 160/80 98 Nasal 3.0L Cannula 10/31 0000 Nasal 3.0L Cannula 10/30 2200 97.8 80 20 120/60 100 Nasal 3.0L Cannula 10/30 1600 97.8 82 20 118/78 99 Nasal 3.0L Cannula Intake & Output 10/31 1600 10/31 0800 10/31 0000 Intake Total 100 100 Output Total Balance 100 100 Intake, Oral 100 100 Number 2 Bowel Movements Physical Exam General Appearance: Alert, Oriented X3, No Acute Distress Cardiovascular: Regular Rate, Normal S1, Normal S2, No Murmurs Lungs: Clear to Auscultation, bilateral basilar coarse breath sounds Abdomen: Normal Bowel Sounds, Soft, No Tenderness Extremities: bilateral lower extremities wrapped for chronic venous ulcers Current Medications: Current Medications Sig/Jens Start time Last Medication Dose Route Stop Time Status Admin Acetaminophen 650 MG Q4-6 PRN PRN 10/27 1545 AC 10/29 PO 2029 Calcium/Vitamin D 250 MG DAILY 10/28 1000 AC 10/30 PO 0909 Docusate Sodium 100 MG BID 10/30 1030 AC 10/30 PO 2200 Famotidine 20 MG BID 10/27 2200 AC 10/30 PO 2200 Ferrous Sulfate 325 MG DAILY 10/28 1000 AC 10/30 PO 0909 Furosemide 40 MG DAILY 10/30 1000 AC 10/30 PO 0912 Heparin Sodium 5,000 UNIT Q8 10/27 (Porcine) SC 0600 Levothyroxine Sodium 0.05 MG DAILY AC 10/29 0700 AC 10/31 PO 0631 Metoclopramide HCl 5 MG AC 10/29 1200 AC 10/31 PO 0631 Polyethylene Glycol 17 GM DAILY PRN 10/30 0845 AC 10/30 PO 0908 Prednisone 5 MG DAILY 10/28 1000 AC 10/30 PO 0909 Senna 187 MG AT BEDTIME PRN 10/30 0845 AC PO Last 24 Hrs of Lab/Mike Results Last 24 Hrs of Labs/Mics: Laboratory Tests 10/31/16 0610: Anion Gap 6, Estimated GFR 39 L, BUN/Creatinine Ratio 23.1, CBC w Diff NO MAN DIFF REQ, RBC 3.17 L, MCV 92.3, MCH 29.3, RDW 20.6 H, MPV 9.6, Gran % 83.0 H, Lymphocytes % 11.4 L, Monocytes % 5.1, Eosinophils % 0.4, Basophils % 0.1, Absolute Granulocytes 7.0 H, Absolute Lymphocytes 1.0 L, Absolute Monocytes 0.4, Absolute Eosinophils 0, Absolute Basophils 0, PUBS MCHC 31.7 L Assessment/Plan Assessment: Assessment: Patient is 81 years old female with past medical history significant for hypertension, congestive heart failure (unknown type), GERD, particularly thyroidectomy on Synthroid, rheumatoid arthritis and polymyositis on prednisone who presented from [place] after an unwitnessed fall. EKG : normal p-waves, normal sinus rhythm, rate (86), ST depression in V5 and 6 Repeat EKG show delta wave of WPW Images CT head and cervical spine without contrast 1. No acute intracranial pathology. 2. No CT evidence of acute cervical spine fracture or traumatic subluxation. Pelvis x-ray 1. Limited study. Sacrum obscured by overlying bowel. 2. Diffuse osteopenia. No definite acute fracture of the pelvic rings or the hips. 3. Prominent atherosclerotic vascular calcifications. Chest x-ray The heart is enlarged, question mild pulmonary vascular congestion. Increased interstitial markings, acute versus chronic. In the acute setting an atypical or viral pneumonia for developing pulmonary edema are possible. Problem list -Unwitnessed fall -Elevated troponin with abnormal EKG findings -Hypertension -Hypothyroidism -Acute kidney injury -Unwitnessed fall -Patient presented from assisted living facility after unwitnessed fall, complained of pain at right parietal region of skull -Images of the head and pelvis are negative for any intracranial hemorrhages or fracture -Patient has history of multiple falls -History of non-positional vertigo -Orthostatic measurement (patient refused toady) pending -Falls precaution -PT evaluation; recommendation for short-term rehabilitation -Nutritional evaluation; patient meets the nutrition guidelines for moderate protein calorie malnutrition based on BMI -Elevated troponin with abnormal EKG findings -On Admission, troponin is 0.[address] depression in V5 and V6 about 0.04 millimeter, nonsignificant -Troponin 0.14, 0.14, 0.11 -Repeated EKG showed Delta wave in multiple leads suggestive for WPW -Patient denied any chest pain or shortness of breath, diaphoresis, nausea -Lipid Profile is within normal -Medical records from [facility] was obtained, Echo cardiogram was done 10/10/2016 shows moderate pulmonary hypertension -Pulmonary consultation was placed Dr. Lloyd -Echo 10/28/16 1. This was a technically difficult examination. 2. 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 The peak gradient across the valve is 14 mmHg with no evidence of significant valvular stenosis. Moderate aortic insufficiency is present. 3. Mitral leaflet thickening is present with moderate anular calcification and mitral insufficiency which is at least moderate in severity with moderate to severe left atrial enlargement. 4. There is no significant pericardial fluid present. 5. A left pleural effusion is noted. 6. The left ventricular chamber size is normal with mild to moderate concentric hypertrophy and a normal ejection fraction. 7. Mild enlargement of the right heart chambers is present with moderate, eccentric tricuspid insufficiency, mild pulmonic insufficiency, dilatation of the IVC and severe pulmonary hypertension with an estmated RV systolic pressure of 80 mmHg. -Hypertension -Furosemide 40 by mouth daily -Hypothyroidism -Synthroid 0.25 mg daily -TSH 5.4, free T4 0.81 -Continue Synthroid to 0.5 mg daily -Bilateral lower limb cellulitis -Patient was recently treated for cellulitis at [facility] -Patient has both of her legs bandaged and she diffuse examination because of pain -Wound consultation was obtained; chronic venostasis ulcer, recommendation to obtain records from [facility]. -Daily dressing nonadherent dressings Xeroform and gauze over dressing -Bilateral venous Doppler negative for DVT -Acute kidney injury -Today BUN raised from 28<30<25, creatinine 1.2<1.4<1 -Hold Lasix -Bolus of D5W 500 mL -Follow-up BUN/creatinine tomorrow -Deferred doing CTA chest today because worsening renal function -Patient complained of nausea, abdomen x-ray exclude signs of obstruction DVT prophylaxis Lovenox Diet heart healthy diet Code full Problem List: 1. Malnutrition 2. Acute kidney injury Pain Ratin Pain Location: none Pain Goal: Remain pain free Pain Plan: tylenol Tomorrow's Labs & Rationales: bep for lytes monitoring [facility] 1703: Attending MD Review Statement Attending Statement Attending MD Statement: examined this patient, discuss w/resident/PA/BLIND HANGER, reviewed EMR data (avail), reviewed images, amended to note (see my note)
[2016-10-31 08:14] VITALS: BP 160/80
[2016-10-31 08:31] LABS: ABSOLUTE BASOPHIL COUNT 0 /CUMM (0.0-0.2); ABSOLUTE EOSINOPHIL COUNT 0 /CUMM (0.0-0.7); ABSOLUTE MONOCYTE COUNT 0.4 /CUMM (0.10-0.60); BASOPHIL % 0.1 % (0.0-2.0); EOSINOPHIL % 0.4 % (0-5); HEMATOCRIT 29.3 % (37-47); MEAN CORPUSCULAR HGB 29.3 PG (27.0-31.0); MEAN CORPUSCULAR HGB CONC 31.7 G/DL (33.0-37.0); MEAN CORPUSCULAR VOLUME 92.3 FL (81.0-99.0); MEAN PLATELET VOLUME 9.6 FL (7.4-10.4); PLATELET COUNT 228 /CUMM (130-400); RBC DISTRIBUTION WIDTH 20.6 % (11.5-14.5); RED BLOOD CELL CT 3.17 /CUMM (4.20-5.40); WHITE BLOOD CELL COUNT 8.4 /CUMM (4.8-10.8)
[2016-10-31 15:30] VITALS: BP 132/64
--- NOTE | 2016-10-31 17:08 | PN- Att Addend ---
Attending Addendum Attending Brief Note Laboratory Tests 10/31/16 0610: Anion Gap 6, Estimated GFR 39 L, BUN/Creatinine Ratio 23.1, CBC w Diff NO MAN DIFF REQ, RBC 3.17 L, MCV 92.3, MCH 29.3, RDW 20.6 H, MPV 9.6, Gran % 83.0 H, Lymphocytes % 11.4 L, Monocytes % 5.1, Eosinophils % 0.4, Basophils % 0.1, Absolute Granulocytes 7.0 H, Absolute Lymphocytes 1.0 L, Absolute Monocytes 0.4, Absolute Eosinophils 0, Absolute Basophils 0, PUBS MCHC 31.7 L Vital Signs Date Time Temp Pulse Resp B/P Pulse O2 O2 Flow FiO2 Ox Delivery Rate 10/31 1530 97.9 84 20 132/64 99 Nasal 4.5L Cannula 10/31 0814 97.9 91 22 160/80 98 Nasal 3.0L Cannula 10/31 0000 Nasal 3.0L Cannula 10/30 2200 97.8 80 20 120/60 100 Nasal 3.0L Cannula 1. Unwitnessed fall 2. Minimally elevated troponin with mild ECG abnormalities 3. Chronic lower extremity edema with probable venous insufficiency and stasis changes with stasis ulcers 4. Severe pulmonary hypertension noted on echocardiogram of unclear etiology- the patient does have evidence of left heart disease with moderate aortic and mitral insufficiency. These may be contributing to her pulmonary hypertension, however, the severity of pulmonary hypertension seems to be out of proportion to her left heart disease. 5. Hypertension 6. Hypothyroidism 7. Dementia 8. Reported history of congestive heart failure 9. History of rheumatoid arthritis and polymyositis on prednisone therapy 10. Multi-valvular heart disease with moderate aortic insufficiency, moderate tricuspid insufficiency and mitral insufficiency which is at least moderate in severity with severe left atrial enlargement. 11. Mild acute renal insufficiency 12. Mild hyponatremia 12. Hx RA/polymyositis Patient's sodium still trending down. We have discontinued her Lasix for the time being and will monitor the hyponatremia off of Lasix. Given the abnormal creatinine will not pursue CT with IV contrast and will instead plan for V/Q scan. LE wounds being followed by wound care. No evidence of CHF at this time. Monitor volume status closely. Follow metabolic panels. Some of the pulmonary HTN work-up will be arranged after discharge. Plan for elective Pulmonary consult in the near future. Mihir Silver MD FACC Attending MD Review Statement Attending Sign Off Attending Cosign Statement: I have: examined this patient, reviewed avalbl EMR data, personally reviewd images, discussd w/resident/PA/PHARMACY CUSTOMER CARE SPECIALIST, discussed mgmt plan w/pt.
--- NOTE | 2016-10-31 22:19 | NUR ---
SMALL 2X2CM OPEN AREA NOTED TO LEFT OF COCCYX WHILE CHANGING PT'S BRIEF AT 2000. AREA RED/NOT BLANCHABLE. NO EXUDATE NOTED. AREA CLEANED WELL AND THIN DUODERM PLACED OVER IT. WCE WILL BE PLACED. PT TURNED DIRECTLY ON LEFT SIDE. WILL T/P Q2H
[2016-11-01 00:32] VITALS: BP 130/60
[2016-11-01 08:24] VITALS: BP 146/68
[2016-11-01 09:13] LABS: ABSOLUTE BASOPHIL COUNT 0 /CUMM (0.0-0.2); ABSOLUTE EOSINOPHIL COUNT 0 /CUMM (0.0-0.7); ABSOLUTE GRANULOCYTE CT 5.3 /CUMM (1.4-6.5); ABSOLUTE LYMPH COUNT 0.7 /CUMM (1.2-3.4); ABSOLUTE MONOCYTE COUNT 0.3 /CUMM (0.10-0.60); BASOPHIL % 0.4 % (0.0-2.0); EOSINOPHIL % 0.5 % (0-5); HEMATOCRIT 28.5 % (37-47); MEAN CORPUSCULAR HGB 28.8 PG (27.0-31.0); MEAN CORPUSCULAR HGB CONC 31.4 G/DL (33.0-37.0); MEAN CORPUSCULAR VOLUME 91.6 FL (81.0-99.0); MEAN PLATELET VOLUME 9.3 FL (7.4-10.4); PLATELET COUNT 223 /CUMM (130-400); RBC DISTRIBUTION WIDTH 19.8 % (11.5-14.5); RED BLOOD CELL CT 3.12 /CUMM (4.20-5.40); WHITE BLOOD CELL COUNT 6.4 /CUMM (4.8-10.8)
[2016-11-01 10:12] LABS: GRANULOCYTE % 83.7 % (42.2-75.2)
--- NOTE | 2016-11-01 11:44 | PN- Housestaff ---
JANET ALCALA,[facility] 11/01/16 1144: Subjective Follow-up For: Hyponatremia Dizziness Chest pain Unwitnessed fall WPW Severe pulmonary hypertension Lower extremity venous stasis ulcers Tele-Events Since Last Visit: Sinus rhythm, heart rate 8290 No events Subjective: Patient was seen and examined this morning, patient over no complaints. Patient has no overnight events, vital signs are stable. Patient is scheduled for VQ scan today. Review of Systems Constitutional: Denies: no symptoms. Objective Last 24 Hrs of Vital Signs/I&O Vital Signs Date Time Temp Pulse Resp B/P Pulse O2 O2 Flow FiO2 Ox Delivery Rate 11/01 1528 97.6 86 20 130/70 100 Nasal 3.0L Cannula 11/01 0824 97.7 84 20 146/68 99 Nasal 3.0L Cannula 11/01 0800 Nasal 3.0L Cannula 11/01 0032 97.6 83 20 130/60 90 Nasal 4.5L Cannula 11/01 0000 Nasal 3.0L Cannula Intake & Output 11/01 1600 11/01 0800 11/01 0000 Intake Total 480 50 120 Output Total Balance 480 50 120 Intake, Oral 480 50 120 Number 1 0 Bowel Movements Physical Exam General Appearance: Alert, Oriented X3, Cooperative, No Acute Distress Skin: No Rashes, No Breakdown, No Significant Lesion HEENT: Atraumatic, PERRLA, EOMI, Mucous Membr. moist/pink Neck: Supple Cardiovascular: Regular Rate, Normal S1, Normal S2, No Murmurs Lungs: bilateral basal crackles Abdomen: Normal Bowel Sounds, Soft, No Tenderness Neurological: Normal Speech, Strength at 5/5 X4 Ext, Normal Tone, Sensation Intact, Cranial Nerves 3-12 NL, Reflexes 2+ Extremities: No Clubbing, No Cyanosis, No Edema, Normal Pulses Vascular: Normal Pulses Assessment/Plan Assessment: Assessment: Patient is 81 years old female with past medical history significant for hypertension, congestive heart failure (unknown type), GERD, particularly thyroidectomy on Synthroid, rheumatoid arthritis and polymyositis on prednisone who presented from [place] after an unwitnessed fall. EKG : normal p-waves, normal sinus rhythm, rate (86), ST depression in V5 and 6 Repeat EKG show delta wave of WPW Images CT head and cervical spine without contrast 1. No acute intracranial pathology. 2. No CT evidence of acute cervical spine fracture or traumatic subluxation. Pelvis x-ray 1. Limited study. Sacrum obscured by overlying bowel. 2. Diffuse osteopenia. No definite acute fracture of the pelvic rings or the hips. 3. Prominent atherosclerotic vascular calcifications. Chest x-ray The heart is enlarged, question mild pulmonary vascular congestion. Increased interstitial markings, acute versus chronic. In the acute setting an atypical or viral pneumonia for developing pulmonary edema are possible. Venous Doppler ultrasound bilateral Negative for DVT VQ scan Low probability for pulmonary embolism Problem list -Unwitnessed fall -Elevated troponin with abnormal EKG findings -Hypertension -Hypothyroidism -Acute kidney injury -Unwitnessed fall -Patient presented from assisted living facility after unwitnessed fall that could be due to hyponatremia or dizziness, complained of pain at right parietal region of skull -Images of the head and pelvis are negative for any intracranial hemorrhages or fracture -Patient has history of multiple falls -History of non-positional vertigo -Orthostatic measurement (patient refused toady) pending -Falls precaution -PT evaluation; recommendation for short-term rehabilitation -Nutritional evaluation; patient meets the nutrition guidelines for moderate protein calorie malnutrition based on BMI -Elevated troponin with abnormal EKG findings -On Admission, troponin is 0.[address] depression in V5 and V6 about 0.04 millimeter, nonsignificant -Troponin 0.14, 0.14, 0.11 -Repeated EKG showed Delta wave in multiple leads suggestive for WPW -Patient denied any chest pain or shortness of breath, diaphoresis, nausea -Lipid Profile is within normal -Medical records from [facility] was obtained, Echo cardiogram was done 10/10/2016 shows moderate pulmonary hypertension -Pulmonary consultation was placed Dr. Lloyd -Echo 10/28/16 1. This was a technically difficult examination. 2. 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 The peak gradient across the valve is 14 mmHg with no evidence of significant valvular stenosis. Moderate aortic insufficiency is present. 3. Mitral leaflet thickening is present with moderate anular calcification and mitral insufficiency which is at least moderate in severity with moderate to severe left atrial enlargement. 4. There is no significant pericardial fluid present. 5. A left pleural effusion is noted. 6. The left ventricular chamber size is normal with mild to moderate concentric hypertrophy and a normal ejection fraction. 7. Mild enlargement of the right heart chambers is present with moderate, eccentric tricuspid insufficiency, mild pulmonic insufficiency, dilatation of the IVC and severe pulmonary hypertension with an estmated RV systolic pressure of 80 mmHg. -VQ scan negative for PE as a cause of pulmonary hypertension -The obtain echo at the beginning of October to the 2016 from [place] shows moderate amount hypertension -Hypertension -Furosemide 40 by mouth daily -Continue to hold Lasix for acute kidney injury -Hypothyroidism -Synthroid 0.25 mg daily -TSH 5.4, free T4 0.81 -Continue Synthroid to 0.5 mg daily -Bilateral lower limb cellulitis -Patient was recently treated for cellulitis at [facility] -Patient has both of her legs bandaged and she diffuse examination because of pain -Wound consultation was obtained; chronic venostasis ulcer, recommendation to obtain records from [facility]. -Daily dressing nonadherent dressings Xeroform and gauze over dressing -Acute kidney injury - BUN/creatinine 27/1.3 continue to remain the same -Hold Lasix -Follow-up BUN/creatinine tomorrow -Patient complained of nausea, abdomen x-ray exclude signs of obstruction DVT prophylaxis Lovenox Diet heart healthy diet Code full Problem List: 1. Acute kidney injury 2. Troponin level elevated 3. Acute electrocardiogram changes 4. Malnutrition Pain Ratin Pain Location: N/A Pain Goal: Pain 4 or less Pain Plan: Mild pain pathway Tomorrow's Labs & Rationales: CBc, CMP KEVAN MARIA MD 11/01/16 1516: Attending MD Review Statement Attending Statement Attending MD Statement: examined this patient, discuss w/resident/PA/RF TEST ENGINEER, agreed w/resident/PA/RF TEST ENGINEER, discussed with family, reviewed EMR data (avail), discussed with nursing, reviewed images, amended to note Attending Assessment/Plan: Agree with house staff noted above. Assessment: 1. Unwitnessed fall 2. Minimally elevated troponin with mild ECG abnormalities 3. Chronic lower extremity edema with probable venous insufficiency and stasis changes with stasis ulcers 4. Severe pulmonary hypertension noted on echocardiogram of unclear etiology- the patient does have evidence of left heart disease with moderate aortic and mitral insufficiency. These may be contributing to her pulmonary hypertension, however, the severity of pulmonary hypertension seems to be out of proportion to her left heart disease. 5. Hypertension 6. Hypothyroidism 7. Dementia 8. Reported history of congestive heart failure 9. History of rheumatoid arthritis and polymyositis on prednisone therapy 10. Multi-valvular heart disease with moderate aortic insufficiency, moderate tricuspid insufficiency and mitral insufficiency which is at least moderate in severity with severe left atrial enlargement. 11. Mild acute renal insufficiency 12. Hyponatremia Plan: * Check repeat orthostatics * Lasix on hold * V/Q scan pending * Repeat basic metabolic profile in the morning
--- NOTE | 2016-11-01 12:56 | PN- Wound Care ---
Subjective Subjective: Patient continues to have local discomfort related to her wounds Objective Vital Signs and I&Os Vital Signs Result Date Time Pulse Ox 99 11/01 823 B/P 146/68 11/01 823 O2 Delivery Nasal Cannula 11/01 823 O2 Flow Rate 3.0L 11/01 823 Temp 97.7 11/01 823 Pulse 84 11/01 823 Resp 20 11/01 823 Intake & Output 11/01 0000 10/31 1600 10/31 0800 Intake Total 120 100 Output Total 250 Balance 120 -250 100 Intake, Oral 120 100 Number 0 3 2 Bowel Movements Output, Urine 250 Exam of her wound show them to be clean the amount of slough is diminished there is minimal drainage there is no significant periwound erythema. Impression/Plan Impression/Plan Impression/Plan: 81-year-old woman who likely has chronic venous stasis ulcers with suspected underlying peripheral vascular disease. Wounds appear clear with moist wound care there is no significant edema with bed rest. Continue Current wound care regimen..
--- NOTE | 2016-11-01 14:46 | ULTRASOUND REPORT ---
EXAMINATION: US SUPERFICIAL IMAGING, EXTREMITY CLINICAL INFORMATION: Patient pulled out her IV. Bruising and blood collection at the site. Evaluate for hematoma left upper arm. COMPARISON: None. TECHNIQUE: Focused ultrasound of the area of the bruising in the left upper arm was performed with real-time assessment by the reading radiologist. FINDINGS: In region of the patient's extensive bruising in the volar aspect of the left upper arm, no significant focal fluid collection or mass is seen. Superficial and deep veins in this location are all patent with normal compressibility demonstrated. Please note, however, that a dedicated deep venous ultrasound of the upper extremity vessels was not performed on this limited study. IMPRESSION: No evidence of hematoma or other complex collection underlying the patient's bruising in the left upper arm.
[2016-11-01 15:28] VITALS: BP 130/70
--- NOTE | 2016-11-01 16:28 | NUCLEAR MEDICINE REPORT ---
EXAMINATION: PULMONARY VENTILATION PERFUSION STUDY CLINICAL INFORMATION: Pulmonary hypertension. Increased right ventricular pressure of unknown etiology. COMPARISON: No previous lung scan is available for comparison. A single chest radiograph dated 10/27/2016 is available for comparison. TECHNIQUE: Serial gamma scintillation camera images were obtained over the posterior chest during the single breath, equilibrium rebreathing and washout of 10.6 mCi Xe 133 gas. The patient then received 4.1 mCi Tc-99m MAA intravenously and a 6-view perfusion study was performed. FINDINGS: Ventilation images: On the single breath and equilibrium images there is a mild diffuse decrease in activity in the right lung. During the washout phase there is moderate retention in the left lung, most severely in the left lung apex. Perfusion images: No segmental perfusion defects are present. There is homogeneous distribution of activity bilaterally. There are no focal anatomic appearing perfusion defects present. The cardiac silhouette is moderately dilated. IMPRESSION: Very low probability of pulmonary embolism.
[2016-11-01 22:05] VITALS: BP 130/64
--- NOTE | 2016-11-02 07:23 | Discharge Summary ---
Visit Information Visit Dates Admission Date: 10/27/16 Discharge Date: 11/02/2016 Hospital Course Course Attending Physician: Patricia HINOJOSA MD Primary Care Physician: FADY CHRISTIAN MD Hospital Course: is an 81 yo women with PMHx. of hypertension, chf, benign positional vertigo, status post thyroidectomy currently on Synthroid, rheumatoid arthritis, polymyositis on prednisone, presented to emergency department with a c/o of mechanical fall. Patient was at [facility] earlier this month for bilateral lower extremity swelling found to have cellulitis treated with Keflex she completed the course at the hospital and then discharged to her [place] [facility], 1 week she found to have abnormal liver function tests so she was admitted again to [facility] unknown etiology of elevated LFT, discharged back to same ECF. According to patient's son she had recurrent fall since earlier October this year, earlier this month she fell forward on her face with bilateral eye bruise. At the day of presentation she was found on the floor by [place] nursing stuff, they denies any Hx of LOC, seizure. Patient denies chest pain, palpitation, she report head lump from the fall, and she also complained of pain in B/L LE. On admission vital signs are temperature 97.5, pulse 86 sinus rhythm, respiration 18, blood pressure 134/60, saturation 96% on room air Labs WBC 9.6, H&H 9.1/28.9, platelet 214, sodium 131, potassium 4.2, chloride 93 , bicarbonate 32, BUN 25, creatinine 1, glucose 86, Troponin 0.12 EKG: NSR, rate 86, ST depression on V5, [address] head and cervical spine without contrast 1. No acute intracranial pathology. 2. No CT evidence of acute cervical spine fracture or traumatic subluxation. Pelvis x-ray 1. Limited study. Sacrum obscured by overlying bowel. 2. Diffuse osteopenia. No definite acute fracture of the pelvic rings or the hips. 3. Prominent atherosclerotic vascular calcifications. Chest x-ray The heart is enlarged, question mild pulmonary vascular congestion. Increased interstitial markings, acute versus chronic. In the acute setting an atypical or viral pneumonia for developing pulmonary edema are possible. Patient admitted to telemetry floor, we trended troponin unitl it's peaked at 0.11, she had WPW on EKG, with mild EKG changes. Echocardiogram was done which shows: CONCLUSIONS 1. This was a technically difficult examination. 2. 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 The peak gradient across the valve is 14 mmHg with no evidence of significant valvular stenosis. Moderate aortic insufficiency is present. 3. Mitral leaflet thickening is present with moderate anular calcification and mitral insufficiency which is at least moderate in severity with moderate to severe left atrial enlargement. 4. There is no significant pericardial fluid present. 5. A left pleural effusion is noted. 6. The left ventricular chamber size is normal with mild to moderate concentric hypertrophy and a normal ejection fraction. 7. Mild enlargement of the right heart chambers is present with moderate, eccentric tricuspid insufficiency, mild pulmonic insufficiency, dilatation of the IVC and severe pulmonary hypertension with an estmated RV systolic pressure of 80 mmHg. She had LINA, her creatinine of 1.4, then 1.3, her baseline was 1, we couldn't do CTA to r/o PE as an etiology for pulmonary hypertension because of LINA, so we did VQ scan, which came back with a low probability for PE. [place] record was obtained, Review of [place] records did not seem to evaluate for pulmonary HTN. Her Lasix was discontinued as a result of hyponatremia, LE wounds being followed by wound care. No evidence of CHF at this time. Patient was seen by kiln remover at discharge today who recommend to continue holding Lasix and patient is, follow-up with her kiln remover Dr. Hinojosa in 2 weeks after discharge Complications: Non Allergies: Coded Allergies: NO KNOWN ALLERGIES (10/27/16) Disposition Summary Disposition Principal Diagnosis: 1. Unwitnessed fall 2. Minimally elevated troponin with mild ECG abnormalities 3. Chronic lower extremity edema with probable venous insufficiency and stasis changes with stasis ulcers 4. Severe pulmonary hypertension noted on echocardiogram of unclear etiology- the patient does have evidence of left heart disease with moderate aortic and mitral insufficiency. These may be contributing to her pulmonary hypertension, however, the severity of pulmonary hypertension seems to be out of proportion to her left heart disease. 5. Hypertension 6. Hypothyroidism 7. Dementia 8. Reported history of congestive heart failure 9. History of rheumatoid arthritis and polymyositis on prednisone therapy 10. Multi-valvular heart disease with moderate aortic insufficiency, moderate tricuspid insufficiency and mitral insufficiency which is at least moderate in severity with severe left atrial enlargement. 11. Mild acute renal insufficiency 12. Mild hyponatremia 12. Hx RA/polymyositis Additional Diagnosis: As above Discharge Disposition: STR Discharge Instructions General Discharge Information Code Status: Full Code Patient's Diet: Heart healthy diet Patient's Activity: As tolerated Follow-Up Instructions/Appts: -Follow-up with your primary care physician 1 week after discharge -Follow up with your kiln remover Dr. Hinojosa in 2 weeks after discharge -Lasix on hold please follow-up with your kiln remover went to start this medication -Take her medication as prescribed Medications at Discharge Discharge Medications: Stop taking the following medications: Amlodipine Besylate (Amlodipine Besylate) 5 MG TABLET ORAL DAILY Furosemide (Lasix) 40 MG TABLET ORAL DAILY Levothyroxine Sodium (Levothyroxine Sodium) 25 MCG TABLET ORAL DAILY Continue taking these medications: Calcium Citrate/Vitamin D3 (Citracal + D Maximum Caplet) 315 MG-250 UNIT TABLET 1 Tablet ORAL TWICE DAILY Comments: Last Taken: 11/02/16 Time: 11 AM Ferrous Sulfate (High Potency Iron) 134 MG (27 MG) TABLET 65 Milligram ORAL Every Day Comments: Last Taken: 11/02/16 Time: 11 AM Prednisone (Prednisone) 5 MG TABLET 1 Tablet ORAL TWICE DAILY Comments: Last Taken: 11/02/16 Time: 11 AM Famotidine (Pepcid) 20 MG TABLET 1 Tablet ORAL TWICE DAILY Comments: Last Taken: 11/02/16 Time: 11 AM Start taking the following new medications: Levothyroxine Sodium (Synthroid) 50 MCG TABLET 0.05 Milligram ORAL DAILY BEFORE BREAKFAST Qty = 1 No Refills Copies To: Patricia HINOJOSA MD
--- NOTE | 2016-11-02 08:06 | PN- Housestaff ---
Subjective Follow-up For: Hyponatremia Dizziness Chest pain Unwitnessed fall WPW Severe pulmonary hypertension Lower extremity venous stasis ulcers Tele-Events Since Last Visit: Wandering pacemaker with rates between 80-104 beats/min. Went up to 140-150 beats/min at 1:59 am overnight. Subjective: Patient was seen and examined this morning. Patient reports having had minimal sleep overnight and she continues to feel nauseous but no associated vomiting. Her nurse reported that she was given melatonin and reglan but it did not seem to help. She seems to be sundowning. She is currently on 1L O2 with 96% saturation. She has no dizziness, chest pain, cough or changes in bowel/bladder habits. Review of Systems Constitutional: Denies: see HPI. Objective Last 24 Hrs of Vital Signs/I&O Vital Signs Date Time Temp Pulse Resp B/P Pulse O2 O2 Flow FiO2 Ox Delivery Rate 11/02 0000 Nasal 1.0L Cannula 11/01 2237 98.1 11/01 2205 102 22 130/64 96 Room Air 11/01 1600 99 Nasal 3.0L Cannula 11/01 1528 97.6 86 20 130/70 100 Nasal 3.0L Cannula 11/01 0824 97.7 84 20 146/68 99 Nasal 3.0L Cannula Intake & Output 11/02 1600 11/02 0800 11/02 0000 Intake Total 120 450 Output Total 300 Balance 120 150 Intake, Oral 120 450 Number 1 Bowel Movements Output, Urine 300 Physical Exam General Appearance: Alert, Oriented X3, Cooperative, No Acute Distress Skin: No Rashes, No Breakdown, No Significant Lesion HEENT: Atraumatic, PERRLA, EOMI, Mucous Membr. moist/pink Neck: Supple Cardiovascular: Regular Rate, Normal S1, Normal S2 Lungs: Normal Air Movement, bilateral bassal crackles Abdomen: Soft, No Tenderness, distension present, bowel sounds heard Neurological: Normal Speech, Strength at 5/5 X4 Ext, Normal Tone, Sensation Intact, Cranial Nerves 3-12 NL, Reflexes 2+ Extremities: No Clubbing, No Cyanosis, No Edema Assessment/Plan Assessment: Assessment: Patient is 81 years old female with past medical history significant for hypertension, congestive heart failure (unknown type), GERD, particularly thyroidectomy on Synthroid, rheumatoid arthritis and polymyositis on prednisone who presented from [place] after an unwitnessed fall. EKG : normal p-waves, normal sinus rhythm, rate (86), ST depression in V5 and 6 Repeat EKG show delta wave of WPW Images CT head and cervical spine without contrast 1. No acute intracranial pathology. 2. No CT evidence of acute cervical spine fracture or traumatic subluxation. Pelvis x-ray 1. Limited study. Sacrum obscured by overlying bowel. 2. Diffuse osteopenia. No definite acute fracture of the pelvic rings or the hips. 3. Prominent atherosclerotic vascular calcifications. Chest x-ray The heart is enlarged, question mild pulmonary vascular congestion. Increased interstitial markings, acute versus chronic. In the acute setting an atypical or viral pneumonia for developing pulmonary edema are possible. Venous Doppler ultrasound bilateral Negative for DVT VQ scan Low probability for pulmonary embolism Problem list -Unwitnessed fall -Elevated troponin with abnormal EKG findings -Hypertension -Hypothyroidism -Acute kidney injury She will be discharged today to a short-term facility -Unwitnessed fall -Patient presented from assisted living facility after unwitnessed fall that could be due to hyponatremia or dizziness, complained of pain at right parietal region of skull -Images of the head and pelvis are negative for any intracranial hemorrhages or fracture -Patient has history of multiple falls -History of non-positional vertigo -Falls precaution -PT evaluation; recommendation for short-term rehabilitation -Nutritional evaluation; patient meets the nutrition guidelines for moderate protein calorie malnutrition based on BMI -Elevated troponin with abnormal EKG findings -On Admission, troponin is 0.[address] depression in V5 and V6 about 0.04 millimeter, nonsignificant -Troponin 0.14, 0.14, 0.11 -Repeated EKG showed Delta wave in multiple leads suggestive for WPW -Patient denied any chest pain or shortness of breath, diaphoresis, nausea -Lipid Profile is within normal -Medical records from [facility] was obtained, Echo cardiogram was done 10/10/2016 shows moderate pulmonary hypertension -Pulmonary consultation was placed Dr. Lloyd -Echo 10/28/16 1. This was a technically difficult examination. 2. 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 The peak gradient across the valve is 14 mmHg with no evidence of significant valvular stenosis. Moderate aortic insufficiency is present. 3. Mitral leaflet thickening is present with moderate anular calcification and mitral insufficiency which is at least moderate in severity with moderate to severe left atrial enlargement. 4. There is no significant pericardial fluid present. 5. A left pleural effusion is noted. 6. The left ventricular chamber size is normal with mild to moderate concentric hypertrophy and a normal ejection fraction. 7. Mild enlargement of the right heart chambers is present with moderate, eccentric tricuspid insufficiency, mild pulmonic insufficiency, dilatation of the IVC and severe pulmonary hypertension with an estmated RV systolic pressure of 80 mmHg. -VQ scan negative for PE as a cause of pulmonary hypertension -The obtain echo at the beginning of October to the 2016 from [place] shows moderate amount hypertension -Hypertension -Furosemide 40 by mouth daily -Continue to hold Lasix for acute kidney injury -Hypothyroidism -Synthroid 0.25 mg daily -TSH 5.4, free T4 0.81 -Continue Synthroid to 0.5 mg daily -Bilateral lower limb cellulitis -Patient was recently treated for cellulitis at [facility] -Patient has both of her legs bandaged and she diffuse examination because of pain -Wound consultation was obtained; chronic venostasis ulcer, recommendation to obtain records from [facility]. -Daily dressing nonadherent dressings Xeroform and gauze over dressing -Acute kidney injury - BUN/creatinine 27/1.3 continue to remain the same -Hold Lasix -Follow-up BUN/creatinine tomorrow -Patient complained of nausea, abdomen x-ray exclude signs of obstruction DVT prophylaxis Lovenox Diet heart healthy diet Code full Problem List: 1. Malnutrition 2. Acute kidney injury 3. Acute electrocardiogram changes Pain Ratin Pain Location: n/a Pain Goal: Pain 4 or less Pain Plan: mild pain pathway Tomorrow's Labs & Rationales: patient is for DC
[2016-11-02 08:28] VITALS: BP 136/60
--- NOTE | 2016-11-02 11:01 | PN- Cardiology ---
Subjective Subjective: The patient is comfortable. She denies any current complaints. No chest pain. No palpitations. No nausea or vomiting. No shortness of breath. Objective Vital Signs and I&Os Vital Signs Date Time Temp Pulse Resp B/P Pulse O2 O2 Flow FiO2 Ox Delivery Rate 11/02 827 98.2 90 20 136/60 96 Nasal 1.0L Cannula 11/02 0000 Nasal 1.0L Cannula 11/01 2237 98.1 11/015 102 22 130/64 96 Room Air 11/01 1600 99 Nasal 3.0L Cannula 11/01 1528 97.6 86 20 130/70 100 Nasal 3.0L Cannula Intake & Output 11/02 1600 11/02 0800 11/02 0000 11/01 1600 11/01 0800 11/01 0000 Intake Total 120 450 480 50 120 Output Total 300 Balance 120 150 480 50 120 Intake, Oral 120 450 480 50 120 Number 1 1 0 Bowel Movements Output, Urine 300 Physical Exam: Gen: NAD HEENT: normal Lungs: Bilateral rales, normal resp. effort Heart: RRR, S1, S2, no murmurs Abdomen: Soft, nontender, no masses Extremities: No clubbing, cyanosis, or edema. Neuro: Alert and oriented x 3, cranial nerves intact Current Medications: Current Medications Sig/Jens Start time Last Medication Dose Route Stop Time Status Admin Acetaminophen 650 MG Q4-6 PRN PRN 10/27 1545 AC 10/29 PO 2028 Calcium/Vitamin D 250 MG DAILY 10/28 1000 AC 11/01 PO 1039 Docusate Sodium 100 MG BID 10/30 1030 AC 11/01 PO 2121 Famotidine 20 MG BID 10/27 2200 AC 11/01 PO 212 Ferrous Sulfate 325 MG DAILY 10/28 1000 AC 11/01 PO 1039 Heparin Sodium 5,000 UNIT Q8 10/27 2199 AC 11/02 (Porcine) SC 0556 Levothyroxine Sodium 0.05 MG DAILY AC 10/29 0700 AC 11/02 PO 0556 Melatonin 5 MG ONCE ONE 11/02 0230 DC 11/02 PO 11/02 0231 0246 Metoclopramide HCl 5 MG AC 10/29 1200 AC 11/02 PO 0556 Polyethylene Glycol 17 GM DAILY 11/02 1000 AC PO Polyethylene Glycol 17 GM DAILY PRN 10/30 0845 DC 11/01 PO 11/02 0959 212 Prednisone 5 MG DAILY 10/28 1000 AC 11/01 PO 1039 Ramelteon 8 MG ONCE ONE 11/01 2230 DC 11/01 PO 11/01 2230 223 Senna 187 MG AT BEDTIME 11/02 2200 AC PO Senna 187 MG AT BEDTIME PRN 10/30 0845 AC 11/01 PO 11/02 215 212 Trimethobenzamide HCl 200 MG .STK-MED ONE 11/02 0158 DC IM 11/02 0159 Trimethobenzamide HCl 200 MG 4 TIMES/DAY PRN 11/01 2215 AC 11/02 IM 0215 Results Last 48 Hrs of Labs/Mics: Laboratory Tests 11/02/16 0621: Anion Gap 14, Estimated GFR 39 L, BUN/Creatinine Ratio 24.6, TSH 7.530 H, Thyroxine (T4) 4.0 L 11/01/16 0755: Anion Gap 7, Estimated GFR 39 L, BUN/Creatinine Ratio 20.8, CBC w Diff NO MAN DIFF REQ, RBC 3.12 L, MCV 91.6, MCH 28.8, RDW 19.8 H, MPV 9.3, Gran % 83.7 H, Lymphocytes % 11.0 L, Monocytes % 4.4, Eosinophils % 0.5, Basophils % 0.4, Absolute Granulocytes 5.3, Absolute Lymphocytes 0.7 L, Absolute Monocytes 0.3, Absolute Eosinophils 0, Absolute Basophils 0, PUBS MCHC 31.4 L Recent Imaging Studies: V/Q scan: Very low probability of pulmonary embolism. Assessment/Plan Assessment/Plan Assessment: 1. Unwitnessed fall 2. Minimally elevated troponin with mild ECG abnormalities 3. Chronic lower extremity edema with probable venous insufficiency and stasis changes with stasis ulcers 4. Severe pulmonary hypertension noted on echocardiogram of unclear etiology- the patient does have evidence of left heart disease with moderate aortic and mitral insufficiency. These may be contributing to her pulmonary hypertension, however, the severity of pulmonary hypertension seems to be out of proportion to her left heart disease. 5. Hypertension 6. Hypothyroidism 7. Dementia 8. Reported history of congestive heart failure 9. History of rheumatoid arthritis and polymyositis on prednisone therapy 10. Multi-valvular heart disease with moderate aortic insufficiency, moderate tricuspid insufficiency and mitral insufficiency which is at least moderate in severity with severe left atrial enlargement. 11. Mild acute renal insufficiency 12. Hyponatremia Plan: * Continue current medications. * Keep off Lasix for now. * Discharge to long term. * Follow up with Dr. Farah in 2 weeks. Continue telemetry? No
[2016-11-02] MEDS ORDERED: SYNTHROID50 MCG PO (11:54)
--- NOTE | 2016-11-02 11:57 | Patient Discharge Instructions ---
Discharge Instructions General Discharge Information You were seen/treated for: 1. Unwitnessed fall 2. Minimally elevated troponin with mild ECG abnormalities 3. Chronic lower extremity edema with probable venous insufficiency and stasis changes with stasis ulcers 4. Severe pulmonary hypertension noted on echocardiogram of unclear etiology- the patient does have evidence of left heart disease with moderate aortic and mitral insufficiency. These may be contributing to her pulmonary hypertension, however, the severity of pulmonary hypertension seems to be out of proportion to her left heart disease. 5. Hypertension 6. Hypothyroidism 7. Dementia 8. Reported history of congestive heart failure 9. History of rheumatoid arthritis and polymyositis on prednisone therapy 10. Multi-valvular heart disease with moderate aortic insufficiency, moderate tricuspid insufficiency and mitral insufficiency which is at least moderate in severity with severe left atrial enlargement. 11. Mild acute renal insufficiency 12. Hyponatremia Special Instructions: -Follow-up with your primary care physician 1 week after discharge -Follow up with your instrument maker and repairer Dr. Farah in 2 weeks after discharge -Lasix on hold please follow-up with your instrument maker and repairer went to start this medication -Take her medication as prescribed Diet Continue normal diet: Yes Recommended Diet: Regular diet Activity Activity Self Limited: Yes Acute Coronary Syndrome Inclusion Criteria At DC or during hospital stay patient has or had the following: ACS DIAGNOSIS No Discharge Core Measures Meds if any: Prescribed or Continued at Discharge Meds if any: NOT Prescribed or Continued at Discharge Congestive Heart Failure Inclusion Criteria At DC or during hospital stay patient has or had the following: CHF DIAGNOSIS No Discharge Core Measures Meds if any: Prescribed or Continued at Discharge Meds if any: NOT Prescribed or Continued at Discharge Cerebrovascular accident Inclusion Criteria At DC or during hospital stay patient has or had the following: CVA/TIA Diagnosis No Discharge Core Measures Meds if any: Prescribed or Continued at Discharge Meds if any: NOT Prescribed or Continued at Discharge Venous thromboembolism Inclusion Criteria VTE Diagnosis No VTE Type NONE VTE Confirmed by (Test) NONE Discharge Core Measures - Per Current guidelines, there needs to be overlap - treatment for the first 5 days of Warfarin therapy. - If discharged on Warfarin prior to 5 days of - overlap therapy, the patient will need to be - assessed for post discharge needs including - *Post discharge parental anticoagulation - *Warfarin and/or parental anticoagulation education - *Follow up date to check INR post discharge At least 5 days overlap therapy as Inpatient No Meds if any: Prescribed or Continued at Discharge Note: Overlap Therapy is Warfarin and Anticoagulant Meds if any: NOT Prescribed or Continued at Discharge
--- NOTE | 2016-11-02 12:48 | NUR ---
PT'S O2 SAT WAS RUNNING FROM 83%-95% ON RA @ 1000. REPORTED TO DR GONZALES.
[2016-11-02 13:47] VITALS: BP 136/60
== END 2016-11-02 15:00 | DRG 641 ==
LOC: ENRESERVTM → ENRESERVDT → ERH 10:29 → ENPENDDIS 14:43 → ERHI 14:43 → 1NO 14:43
PROVIDERS: Physician Assistant Medical; Student in an Organized Health Care Education/Training Program; ADMIT Specialist
DX: E87.1 Hypo-osmolality and hyponatremia (principal); I47.2 Ventricular tachycardia; N17.9 Acute kidney failure, unspecified; E44.0 Moderate protein-calorie malnutrition; M33.20 Polymyositis, organ involvement unspecified; I11.0 Hypertensive heart disease with heart failure; I50.9 Heart failure, unspecified; I27.2 Other secondary pulmonary hypertension; L97.529 Non-pressure chronic ulcer of other part of left foot with unspecified severity; Z68.1 Body mass index [BMI] 19.9 or less, adult; L97.829 Non-pressure chronic ulcer of other part of left lower leg with unspecified severity; K21.9 Gastro-esophageal reflux disease without esophagitis; M06.9 Rheumatoid arthritis, unspecified; Z87.891 Personal history of nicotine dependence; E03.9 Hypothyroidism, unspecified; I87.2 Venous insufficiency (chronic) (peripheral); I73.9 Peripheral vascular disease, unspecified; I45.6 Pre-excitation syndrome; Z79.52 Long term (current) use of systemic steroids; Z91.81 History of falling; W19.XXXA Unspecified fall, initial encounter; Y92.129 Unspecified place in nursing home as the place of occurrence of the external cause
CPT/HCPCS: 1NSP; 36415; 72170; 74000; 76881; 78582; 81001; 82436; 87086; 93005; 93010; 93306; 93970; 97116-GO; 97162-GP; 97530-GO; 99291; A9540; A9558; J1644; J1650; J3250; J7060; J7512; Q2036

== ENCOUNTER 2016-11-09 15:51 | Emergency (ER) | payer OTHER, MEDICARE ==
[~2016-11-09] VITALS: Ht 152.4 cm; Wt 39.9 kg
[~2016-11-09 15:51] MED LIST: AMLODIPINE BESYL5 M1 PO; CITRACAL + D M1 EACH PO; HIGH POTENCY I134 MG PO; LASIX40 M1 PO; LEVOTHYROXINE25 MCG PO; PEPCID20 M1 PO; PREDNISONE5 M1 PO; SYNTHROID50 MCG PO
--- NOTE | 2016-11-09 16:10 | ED GENERAL ADULT ---
History of Present Illness General Chief Complaint: General Adult Stated Complaint: LETHARGIC Source: patient, EMS, W10 Exam Limitations: poor historian Vital Signs & Intake/Output Vital Signs & Intake/Output Vital Signs Date Time Temp Pulse Resp B/P Pulse O2 O2 Flow FiO2 Ox Delivery Rate 11/09 1954 Nasal 6.0L Cannula 11/09 1942 108/0 11/09 1921 99.1 99 24 86/46 94 Nasal 3.0L Cannula 11/09 1744 99.4 109 16 114/57 97 Nasal 3.0L Cannula 11/09 1721 99.8 102 115/56 11/09 1610 Nasal 3.0L Cannula 11/09 1603 99.5 109 20 134/81 97 Nasal 3.0L Cannula Allergies Coded Allergies: NO KNOWN ALLERGIES (10/27/16) Reconcile Medications Calcium Citrate/Vitamin D3 (Citracal + D Maximum Caplet) 315 MG-250 UNIT TABLET 1 TAB PO BID HEALTH SUPPLEMENT (Reported) Famotidine (Pepcid) 20 MG TABLET 1 TAB PO BID HEARTBURN (Reported) Ferrous Sulfate (High Potency Iron) 134 MG (27 MG) TABLET 65 MG PO D HEALTH SUPPLEMENT (Reported) Levothyroxine Sodium (Synthroid) 50 MCG TABLET 0.05 MG PO DAILY AC Hypothyroidism Prednisone 5 MG TABLET 1 TAB PO BID HEALTH SUPPLEMENT (Reported) Triage Note: BIBA FROM [facility] FOR AMS, LETHARGY AND TACHYCARDIA. HISTORY OF COGNITIVE DEFICITES BUT PER EMS NORMALLY MORE INTERACTIVE THEN AT PRESENT. HX OF CHF, CELLULITIS OF BLE, AND HYPOTHYROIDISM. PT AWAKE, FOLLOWS COMMANDS BUT WITH MINIMAL TALKING. UNABLE TO ANSWER QUESTIONS TO VERIFY ORIENTATION. RESP EVEN AND UNLABORED. SKIN WARM AND DRY. Triage Nurses Notes Reviewed? yes Onset: Gradual Duration: day(s): (1) Timing: unknown Injury Environment: home Severity: moderate No Modifying Factors: none HPI: Patient is an 81-year-old female coming in from a nursing facility via ambulance with chief complaint increased lethargy over the past one day. Per care home staff they found her this afternoon, she was tachycardic, more lethargic with mild increased work of breathing. She was less responsive than she normally is. She is usually able to communicate slightly. There is centers Center in for evaluation of lethargy and altered mental status. Patient denying any pain. Denies any chest pain or shortness of breath. (AARON JAQUEZ) Past History Travel History Traveled to [place] past 21 day No Medical History Any Pertinent Medical History? see below for history Neurological: dementia Cardiovascular: CHF, hypertension Gastrointestinal: GERD Musculoskeletal: CELLULITIS Endocrine: hypothyroidism Surgical History Surgical History: unobtainable Psychosocial History What is your primary language German Tobacco Use: Refused to answer ETOH Use: 6 Illicit Drug Use: UTD Family History Hx Contributory? No (AARON JAQUEZ) Review of Systems Review of Systems Constitutional: Reports: malaise, weakness. Comments Review of systems: See HPI, All other systems negative. HPI PER CARE HOME AND EMS Constitutional, no chills fever or weight loss HEENT: No visual changes no sore throat Cardiovascular: No chest pain ,palpitation , orthopnea or ankle swelling Skin, no jaundice no rashes Respiratory: No dyspnea sputum or hemoptysis GI: No nausea no vomiting : No dysuria No hematuria Muscle skeletal: no back pain, no neck pain, Neurologic: No numbness PSYCH: NOT RESPONSIVE NORMAL PER W10 Heme/endocrine: No bruising no bleeding no polyuria or polydipsia Immunology: No splenectomy or history of AIDS (AARON JAQUEZ) Physical Exam Physical Exam General Appearance: alert, awake, anxious, mild distress (MILD RESP DISTRESS), thin Comments: Thin person in mild respiratory distress, HEENT: EXOPTHALMUS, extraocular motion intact, no nystagmus. Pupils equally round and reactive to light and accommodation. Nose is atraumatic. External auditory canal and Tympanic membranes clear. Pharynx normal. Very dry oral mucosa and dry lips. No swelling or edema. Neck: Supple, no lymphadenopathy, normal range of motion without pain or tenderness Back: Nontender Cardiovascular: Regular rate and rhythms no murmurs rubs or gallops, normal JVP Respiratory: Chest nontender. Mildly distress, diffuse rhonchi TO auscultation bilaterally Abdomen: distended, tender to palpation diffusely, hypopactivebowel sounds, no appreciable organomegaly. Extremity: No edema, no calf tenderness to palpation, normal and equal pulses. Neuro: Alert and oriented to person, cranial nerves II through XII grossly intact. Able to answer questions with nodding. Skin: No appreciable rash on exposed skin, skin is warm and dry. Psych: Anxious, poor memory/judgment, does not seem to be able to make decisions for herself at this time. (AL SCHROEDER,AARON) Core Measures ACS in differential dx? Yes CVA/TIA Diagnosis: No Severe Sepsis Present: Yes Septic Shock Present: Yes (KELLY ALCALA,SCARLET Cope) Progress Differential Diagnoses I considered the following diagnoses in my evaluation of the patient: Pneumonia , bronchitis, ACS, UTI, dehydration, CHF, electrolyte abnormality, diverticulitis, SBO, perforated viscus Plan of Care: Orders Procedure Date/time Status Regular Diet 11/09 B Active Add-on Test (ER Only) 11/09 1919 Active TYPE & SCREEN (NOT X-MATCH) 11/09 192 Complete LACTIC ACID 11/09 190 Complete EKG 11/09 190 Active Intake & Output 11/09 1835 Active URINE DRUGS OF ABUSE 11/09 175 Active OXYGEN SETUP (GEN) 11/09 171 Active Saline Lock 11/09 1711 Active Admit to inpatient 11/09 1711 Active Vital Signs 11/09 1711 Active Activity/Ambulation 11/09 1711 Active Code Status 11/09 1711 Active RAPID VIRAL INFLUENZA A 11/09 1626 Complete PARTIAL THROMBOPLASTIN TIME 11/09 1619 Complete PROTHROMBIN TIME 11/09 1619 Complete Telemetry/Leaf Sorter 11/09 1609 Active BLOOD CULTURE 11/09 1609 Active URINALYSIS 11/09 1609 Complete TROPONIN LEVEL 11/09 1609 Complete LACTIC ACID 11/09 1609 Complete COMPREHENSIVE METABOLIC PANEL 11/09 1609 Complete CBC WITHOUT DIFFERENTIAL 11/09 1609 Complete EKG 11/09 1609 Active Current Medications Sig/Jens Start time Last Medication Dose Stop Time Status Admin Aspirin 325 MG ONCE ONE 11/09 1745 CAN (Aspirin) 11/09 1746 Laboratory Tests 11/09/16 1945: Lactic Acid 8.0 H 11/09/16 1654: Urinalysis MOD H, Urine Color YEL, Urine Clarity CLEAR, Urine pH 6.0, Ur Specific [place] 1.025, Urine Protein 100 H, Urine Ketones NEG, Urine Nitrite NEG, Urine Bilirubin NEG, Urine Urobilinogen 0.2, Ur Leukocyte Esterase NEG, Ur Microscopic SEDIMENT EXAMINED, Urine RBC RARE, Urine WBC RARE, Ur Epithelial Cells RARE, Urine Hemoglobin NEG, Urine Glucose NEG 11/09/16 1619: Anion Gap 13, Estimated GFR 27 L, BUN/Creatinine Ratio 25.6 H, Glucose 71, Lactic Acid 6.0 H, Calcium 7.9 L, Total Bilirubin 1.0, AST 234 H, ALT 126 H, Alkaline Phosphatase 123, Troponin I 8.24 *H, Total Protein 5.9 L, Albumin 2.6 L, Globulin 3.3, Albumin/Globulin Ratio 0.8 L, PT 14.2 H, INR 1.36 H, APTT 29 , CBC w Diff MAN DIFF ORDERED, RBC 3.53 L, MCV 91.4, MCH 29.1, RDW 19.4 H, MPV 8.9, Gran % 86.1 H, Lymphocytes % 11.3 L, Monocytes % 2.3, Eosinophils % 0.2, Basophils % 0.1, Absolute Granulocytes 3.4, Segmented Neutrophils 48, Band Neutrophils 27 H, Absolute Lymphocytes 0.4 L, Lymphocytes 14 L, Monocytes 3, Absolute Monocytes 0.1 L, Absolute Eosinophils 0, Absolute Basophils 0, Metamyelocytes 8 H, Nucleated RBCs 4 H, Platelet Estimate ADEQUATE, Polychromasia 1+, Basophilic Stippling 1+, Anisocytosis 1+, Macrocytic Cells 1+, PUBS MCHC 31.9 L Microbiology 11/09 1623 BLOOD: Blood Culture - RECD 11/09 162 BLOOD: Blood Culture - RECD Diagnostic Imaging: Viewed by Me: Radiology Read, CT Scan. Discussed w/RAD: Radiology Read, CT Scan. Radiology Impression: PATIENT: KI SPENCER PRESENT AGE: 81 PATIENT ACCOUNT NO: [id number] : 35 LOCATION: [facility] ORDERING PHYSICIAN: AARON SCHROEDER SERVICE DATE: 11/09/16 EXAM TYPE: RAD - XRY-PORTABLE CHEST XRAY EXAMINATION: XR PORTABLE CHEST CLINICAL INFORMATION: Lethargy, rule out pneumonia COMPARISON: 10/27/2016 TECHNIQUE: Portable AP view of the chest was obtained. FINDINGS: Lung volumes are symmetric. There is patchy airspace opacity at the right base, new from prior. There is interstitial prominence bilaterally, mildly increased in the right lung compared to prior. No evidence of pneumothorax. A small right pleural effusion is suspected. The cardiac silhouette remains enlarged. There is atherosclerotic calcification along the aorta. No acute osseous findings are seen. IMPRESSION: New patchy right basilar opacity and probable small pleural effusion. Increased interstitial prominence in the right lung compared to prior. Appearance may reflect worsening asymmetric edema; developing right basilar aspiration/ pneumonia is also a possibility in the proper clinical setting., PATIENT: KI SPENCER PRESENT AGE: 81 PATIENT ACCOUNT NO: [id number] : 35 LOCATION: ER ORDERING PHYSICIAN: AARON SCHROEDER SERVICE DATE: 11/09/16 EXAM TYPE: CAT - CT HEAD WO IV CONTRAST EXAMINATION: CT HEAD WITHOUT CONTRAST CLINICAL INFORMATION: Altered mental status. COMPARISON : Noncontrast head CT 10/27/2016. TECHNIQUE: Contiguous axial imaging was performed from the skull base to vertex without intravenous administration of contrast. DLP: 600 mGy-cm FINDINGS: Noncontrast CT imaging of the brain demonstrates age-appropriate generalized parenchymal volume loss with proportional prominence of the sulci and ventricles. There is no acute intracranial hemorrhage, mass or mass effect or abnormal extra-axial fluid collections. There are no focal areas of hypoattenuation in a vascular distribution to suggest acute transcortical ischemia. Areas of hypoattenuation within the periventricular and deep cortical white matter are nonspecific but could reflect sequela of mild chronic microvascular ischemia. No acute calvarial abnormality. The mastoid air cells and visualized portions of the paranasal sinuses are well-aerated. IMPRESSION: 1. No acute intracranial abnormality. 2. Generalized parenchymal volume loss and sequela of mild chronic microvascular ischemia., PATIENT: KI SPENCER PRESENT AGE: 81 PATIENT ACCOUNT NO: [id number] : 35 LOCATION: [facility] ORDERING PHYSICIAN: AARON SCHROEDER SERVICE DATE: 11/09/16 EXAM TYPE: CAT - CT ABD & PELVIS W/O IV CONTRAS EXAMINATION: CT ABDOMEN AND PELVIS WITHOUT CONTRAST CLINICAL INFORMATION: Abdominal pain and distention. Evaluate for small bowel obstruction. COMPARISON: None. TECHNIQUE: Multidetector volumetric imaging was performed from the superior aspect of the liver through the pubic symphysis. Sagittal and coronal reformatted images were obtained on the technologist's workstation. DLP: 228 mGy-cm FINDINGS: Limited evaluation of the solid abdominal viscera in the absence of intravenous contrast. LUNG BASES: Evaluation of the included lung bases demonstrates small bilateral pleural effusions, right greater than left. There is four-chamber cardiomegaly. No significant pericardial effusion is identified. Incidental note is made of multiple thin- walled cysts within the bilateral lung bases. LIVER, GALLBLADDER, AND BILIARY TREE: The liver is normal in size, shape, and attenuation. No contour deforming hepatic lesion or biliary ductal dilatation is present. The gallbladder is unremarkable with no evidence of radiopaque gallstones, gallbladder wall thickening, or obvious pericholecystic inflammatory changes. Focal calcifications adjacent to the gallbladder appear to correspond to hepatic granulomas. PANCREAS: Generalized pancreatic atrophy. No peripancreatic inflammatory changes or fluid collections. SPLEEN: Atrophic spleen. ADRENAL GLANDS: Unremarkable. KIDNEYS AND URETERS: Evaluation of the bilateral kidneys and renal collecting systems is notable for atrophy of the left kidney. The right kidney is normal in size. There is no appreciable nephrolithiasis or hydroureteronephrosis of either kidney or renal collecting system. There are several cysts along the knik left kidney, visualized measuring up to 2.7 cm along the mid to lower pole of the left kidney. BLADDER: Unremarkable. GASTROINTESTINAL TRACT: Evaluation of the gastrointestinal system is somewhat limited given lack of intravenous and oral contrast. There is a moderate amount of retained stool throughout the colon, indicative of constipation. Of note, there are scattered foci of free air within the abdomen and pelvis, notably within the anterior abdomen, anterior to the stomach and liver. Free intraperitoneal air is also identified within the central pelvis, surrounding a focal segment of the sigmoid colon. Evaluation of the pelvis is notable for extensive sigmoid diverticulosis. There are suspected circumferential thickening of the sigmoid colon with subtle pericolonic inflammatory changes, suspicious for an acute sigmoid diverticulitis. There is a collection of air and fluid along the left lateral aspect of the sigmoid colon, measuring approximately 3.9 x 3.9 x 5.0 cm in AP, transverse and craniocaudal dimensions respectively. This could reflect an organizing fluid collection in the setting of a suspected perforation of the sigmoid colon. There is moderate gaseous distention of the stomach. Abdominal and pelvic bowel loops otherwise appear to be normal in caliber, without findings suggestive of small bowel obstruction or ileus. ABDOMINAL WALL: No significant hernia is appreciated. LYMPH NODES: No significant abdominal or pelvic adenopathy. VASCULAR: Extensive atherosclerosis of the abdominal aorta and its branching vessels, without aneurysmal dilatation. Limited evaluation for vascular patency, given lack of intravenous contrast. PELVIC VISCERA: No adnexal masses. OSSEOUS STRUCTURES: Demineralization of the visualized bones. No acute vertebral compression deformities. Chronic appearing compression deformity involving the T12 vertebral body with vertebral plana configuration of the T12 vertebral body and retropulsion of the posterior cortex of T12 into the spinal canal. IMPRESSION: 1. Scattered foci of free air throughout the abdomen and pelvis, notably within the anterior abdomen, abutting the stomach and liver. There are also scattered foci of free intraperitoneal air within the central pelvis. Given scattered sigmoid diverticulosis as well as secondary signs suspicious for an acute sigmoid diverticulitis, primary diagnostic consideration is for a perforated sigmoid diverticulitis. There is a questionable collection of air and fluid along the left lateral aspect of the inflamed sigmoid colon measuring 3.9 x 3.9 x 5.0 cm. This could reflect organizing fluid/abscess within the central pelvis. 2. Small bilateral pleural effusions. This critical result was discussed with Dr. Aaron Madison at 5:38 PM on 11/09/2016 and it was ascertained that the content and urgency of the report was understood at the time of direct communication. DICTATED BY: MAGALIE REAGAN MD DATE/TIME DICTATED:11/09/161730 DRYING MACHINE BACK TENDER:DELANEY DATE/ TIME TRANSCRIBED:11/09/161730 CONFIDENTIAL, DO NOT COPY WITHOUT APPROPRIATE AUTHORIZATION. <Electronically signed in Other Vendor System> SIGNED BY: MAGALIE REAGAN MD 11/09/16 8334 Initial ED EKG: sinus tachycardia at 102 bpm, borderline prolonged QT interval, PVCs Prior EKG: unchanged Repeat EKG: unchanged Comments: 11/09/2016 5:07:57 PM spoke with hospitalist, pending call back from cardiology. Still pending CT results. Troponin is 8.4. 11/09/2016 5:18:[address] Farah who saw this patient on previous hospital admission. He is recommending we give patient an aspirin, hold anticoagulation at this time. He is also recommending that we call to the on- call geophysical operator. Dr. Crystal will be paged. No acute EKG changes. Patient is still afebrile, tachycardic. X-ray shows pneumonia. IV antibiotics and blood cultures ordered. IV vancomycin and Fortaz initiated. Still pending CT scan results. ASA HELD DUE TO PERF. PT MAY REQURE SURGERY 11/09/2016 5:49:07 PM patient has a second line at this time. Just received phone call from radiologist, patient has perforated sigmoid colon with free air in the abdomen. IV Flagyl added to an antibiotic mix. Still awaiting callback from surgery. Also awaiting callback from cardiology. 11/09/2016 6:09:59 PM another page placed to surgery and cardiology. 11/09/2016 7:07:[address] Gibbs in to evaluate patient prior to surgery. Dr. Ibrahim will take the patient to the OR. Charles was informed of this. Charles would like everything done to save his mother. Full code. He will be arriving at the hospital and approximately 30 minutes. (AARON JAQUEZ) Comments: Patient became unresponsive she bradycardia down to the PA. CPR was initiated. Patient was intubated with 7.5 endotracheal tube by myself. Patient received 50 mg of amoxicillin HCO3 total of 3 doses of epinephrine 1-10,000 ratio. The patient became asystolic. Patient was pronounced at 2014 with her son at the bedside. (KELLY ALCALA,SCARLET Cope) Departure Departure Time of Disposition: 1746 Condition: Stable Clinical Impression Primary Impression: Troponin level elevated Secondary Impressions: Perforated bowel Pneumonia Qualifiers: Pneumonia type: due to unspecified organism Laterality: right Lung location: lower lobe of lung Qualified Code: J18.1 - Lobar pneumonia, unspecified organism Transaminitis Referrals: CONTRERAS COLON MD (PCP/Family) Departure Forms: Customer Survey General Discharge Information Admission Note Spoke With: CLARE IBRAHIM MD Documentation of Exam: Documentation of any treatments & extenuating circumstances including Concerns Regarding Discharge (functional status, medication knowledge or non-compliance, living conditions, etc.) that warrant an admission rather than observation: Patient requiring surgical intervention for perforated colon. Patient will then need cardiology consultation, medicine consultation, IV antibiotics. (AARON JAQUEZ) Departure Disposition: PA/TECHNICAL SUPPORT REPRESENTATIVE Co-Sign Statement Statement: ED Attending supervision documentation- [] I saw and evaluated the patient. I have also reviewed all the pertinent lab results and diagnostic results. I agree with the findings and the plan of care as documented in the PA's/TECHNICAL SUPPORT REPRESENTATIVE's documentation. [] I have reviewed the ED Record and agree with the PA's/TECHNICAL SUPPORT REPRESENTATIVE's documentation. [] Additions or exceptions (if any) to the PAs/TECHNICAL SUPPORT REPRESENTATIVE's note and plan are summarized below: [] (SCARLET MENDOZA MD) PA/TECHNICAL SUPPORT REPRESENTATIVE Co-Sign Statement Statement: ED Attending supervision documentation- x I saw and evaluated the patient. I have also reviewed all the pertinent lab results and diagnostic results. I agree with the findings and the plan of care as documented in the PA's/TECHNICAL SUPPORT REPRESENTATIVE's documentation. Case discussed with care home physician 4 admissions for CHF, LINA having difficulty diuresing patient who is now lethargic with decreased mental status. Clinically in CHF with diffuse abdominal pain. +troponin, free air in abdomen from perforation of diverticulum. To OR after cardiology consult. [] I have reviewed the ED Record and agree with the PA's/TECHNICAL SUPPORT REPRESENTATIVE's documentation. [] Additions or exceptions (if any) to the PAs/TECHNICAL SUPPORT REPRESENTATIVE's note and plan are summarized below: [] (JOANNE ALCALA,ZIYAD) Procedures Intubation Time of Intubation: 1999 Intubation Method: orotracheal Tube Size (cm): 7.5 Breath Sounds After Intubation: equal Intubation Complications: no complications Post Intubation Xray? No Progress: PT (SCARLET MENDOZA MD) Critical Care Note Critical Care Note Critical Care Time: 75-104 min (AARON JAQUEZ) Critical Care Note Total CPR Time (mins): 20 (SCARLET MENDOZA MD)
[2016-11-09 16:30] LABS: ABSOLUTE BASOPHIL COUNT 0 /CUMM (0.0-0.2); ABSOLUTE EOSINOPHIL COUNT 0 /CUMM (0.0-0.7); ABSOLUTE LYMPH COUNT 0.4 /CUMM (1.2-3.4); ABSOLUTE MONOCYTE COUNT 0.1 /CUMM (0.10-0.60)
[2016-11-09 16:32] LABS: ABSOLUTE GRANULOCYTE CT 3.4 /CUMM (1.4-6.5); BASOPHIL % 0.1 % (0.0-2.0); EOSINOPHIL % 0.2 % (0-5); GRANULOCYTE % 86.1 % (42.2-75.2); HEMATOCRIT 32.3 % (37-47); MEAN CORPUSCULAR HGB 29.1 PG (27.0-31.0); MEAN CORPUSCULAR HGB CONC 31.9 G/DL (33.0-37.0); MEAN CORPUSCULAR VOLUME 91.4 FL (81.0-99.0); MEAN PLATELET VOLUME 8.9 FL (7.4-10.4); PLATELET COUNT 314 /CUMM (130-400); RBC DISTRIBUTION WIDTH 19.4 % (11.5-14.5); RED BLOOD CELL CT 3.53 /CUMM (4.20-5.40)
[2016-11-09 16:34] LABS: WHITE BLOOD CELL COUNT 4.3 /CUMM (4.8-10.8)
--- NOTE | 2016-11-09 17:00 | RADIOLOGY REPORT ---
EXAMINATION: XR PORTABLE CHEST CLINICAL INFORMATION: Lethargy, rule out pneumonia COMPARISON: 10/27/2016 TECHNIQUE: Portable AP view of the chest was obtained. FINDINGS: Lung volumes are symmetric. There is patchy airspace opacity at the right base, new from prior. There is interstitial prominence bilaterally, mildly increased in the right lung compared to prior. No evidence of pneumothorax. A small right pleural effusion is suspected. The cardiac silhouette remains enlarged. There is atherosclerotic calcification along the aorta. No acute osseous findings are seen. IMPRESSION: New patchy right basilar opacity and probable small pleural effusion. Increased interstitial prominence in the right lung compared to prior. Appearance may reflect worsening asymmetric edema; developing right basilar aspiration/pneumonia is also a possibility in the proper clinical setting.
--- NOTE | 2016-11-09 17:32 | CT SCAN REPORT ---
EXAMINATION: CT HEAD WITHOUT CONTRAST CLINICAL INFORMATION: Altered mental status. COMPARISON: Noncontrast head CT 10/27/2016. TECHNIQUE: Contiguous axial imaging was performed from the skull base to vertex without intravenous administration of contrast. DLP: 600 mGy-cm FINDINGS: Noncontrast CT imaging of the brain demonstrates age-appropriate generalized parenchymal volume loss with proportional prominence of the sulci and ventricles. There is no acute intracranial hemorrhage, mass or mass effect or abnormal extra-axial fluid collections. There are no focal areas of hypoattenuation in a vascular distribution to suggest acute transcortical ischemia. Areas of hypoattenuation within the periventricular and deep cortical white matter are nonspecific but could reflect sequela of mild chronic microvascular ischemia. No acute calvarial abnormality. The mastoid air cells and visualized portions of the paranasal sinuses are well-aerated. IMPRESSION: 1. No acute intracranial abnormality. 2. Generalized parenchymal volume loss and sequela of mild chronic microvascular ischemia.
--- NOTE | 2016-11-09 17:49 | History & Physical ---
General Information and HPI MD Statement: I have seen and personally examined KI SPENCER and documented this H&P. The patient is a 81 year old F who presented with a patient stated chief complaint of []. History of Present Illness: This is an 81-year-old female with past medical history significant for: Hypertension, CHF, chronic lower extremity edema, dementia, benign positional vertigo, recurrent falls, thyroidectomy on Synthroid, rheumatoid arthritis, polymyositis on prednisone, Who was brought in by ambulance for chief complaint of increasing lethargy for one day. [facility] staff they found her tachycardic, and more lethargic than usual with increased work of breathing. Of note, she was recently discharged on 11/02/2016 from [facility] for chief complaint of mechanical fall. Allergies/Medications Allergies: Coded Allergies: NO KNOWN ALLERGIES (10/27/16) Home Med list Calcium Citrate/Vitamin D3 (Citracal + D Maximum Caplet) 315 MG-250 UNIT TABLET 1 TAB PO BID HEALTH SUPPLEMENT (Reported) Famotidine (Pepcid) 20 MG TABLET 1 TAB PO BID HEARTBURN (Reported) Ferrous Sulfate (High Potency Iron) 134 MG (27 MG) TABLET 65 MG PO D HEALTH SUPPLEMENT (Reported) Levothyroxine Sodium (Synthroid) 50 MCG TABLET 0.05 MG PO DAILY AC Hypothyroidism Prednisone 5 MG TABLET 1 TAB PO BID HEALTH SUPPLEMENT (Reported) Past History Travel History Traveled to [place] past 21 day No Medical History Neurological: dementia Cardiovascular: CHF, hypertension Gastrointestinal: GERD Musculoskeletal: CELLULITIS Endocrine: hypothyroidism Surgical History Surgical History: unobtainable Past Family/Social History Psychosocial History ETOH Use: 6 Illicit Drug Use: UTD Assessment/Plan Assessment: IMPRESSION: New patchy right basilar opacity and probable small pleural effusion. Increased interstitial prominence in the right lung compared to prior. Appearance may reflect worsening asymmetric edema; developing right basilar aspiration/pneumonia is also a possibility in the proper clinical setting. In ED patient was found to have: 99.4,109,16,134/81,97 UA showed elevated protein, negative leukocyte esterase, negative nitrite, in the radio white and red blood cell. CBC showed white count 4.3, hemoglobin 10.3, hematocrit 32.3, platelet 314. Bands of 27. BEP showed sodium 133, potassium 5.7, chloride 97, BUN 46, creatinine 1.8. Lactic acid 6, calcium 7.9, AST 234, ALT 126. Troponin 8.24. Plan: 1. Elevated troponins: Patient has troponins measured up to 8.24 in ED. EKG shows: Follow blood cultures Negative head CT Negative chest x-ray In ED patient given that, ceftaz, Flagyl. Previous echocardiogram showed calcific degeneration of the aortic valve with a gradient of 14. At that time should have pleural effusion. Normal EF. With severe pulmonary hypertension with estimated right ventricular systolic pressure of 80 mm per mercury next line during present admission she had minimally elevated troponin of 0.12. Core Measures/Miscellaneous Severe Sepsis Severe Sepsis Present: No Septic Shock Septic Shock Present: No
--- NOTE | 2016-11-09 17:55 | CT SCAN REPORT ---
EXAMINATION: CT ABDOMEN AND PELVIS WITHOUT CONTRAST CLINICAL INFORMATION: Abdominal pain and distention. Evaluate for small bowel obstruction. COMPARISON: None. TECHNIQUE: Multidetector volumetric imaging was performed from the superior aspect of the liver through the pubic symphysis. Sagittal and coronal reformatted images were obtained on the technologist's workstation. DLP: 228 mGy-cm FINDINGS: Limited evaluation of the solid abdominal viscera in the absence of intravenous contrast. LUNG BASES: Evaluation of the included lung bases demonstrates small bilateral pleural effusions, right greater than left. There is four-chamber cardiomegaly. No significant pericardial effusion is identified. Incidental note is made of multiple thin-walled cysts within the bilateral lung bases. LIVER, GALLBLADDER, AND BILIARY TREE: The liver is normal in size, shape, and attenuation. No contour deforming hepatic lesion or biliary ductal dilatation is present. The gallbladder is unremarkable with no evidence of radiopaque gallstones, gallbladder wall thickening, or obvious pericholecystic inflammatory changes. Focal calcifications adjacent to the gallbladder appear to correspond to hepatic granulomas. PANCREAS: Generalized pancreatic atrophy. No peripancreatic inflammatory changes or fluid collections. SPLEEN: Atrophic spleen. ADRENAL GLANDS: Unremarkable. KIDNEYS AND URETERS: Evaluation of the bilateral kidneys and renal collecting systems is notable for atrophy of the left kidney. The right kidney is normal in size. There is no appreciable nephrolithiasis or hydroureteronephrosis of either kidney or renal collecting system. There are several cysts along the [place] left kidney, visualized measuring up to 2.7 cm along the mid to lower pole of the left kidney. BLADDER: Unremarkable. GASTROINTESTINAL TRACT: Evaluation of the gastrointestinal system is somewhat limited given lack of intravenous and oral contrast. There is a moderate amount of retained stool throughout the colon, indicative of constipation. Of note, there are scattered foci of free air within the abdomen and pelvis, notably within the anterior abdomen, anterior to the stomach and liver. Free intraperitoneal air is also identified within the central pelvis, surrounding a focal segment of the sigmoid colon. Evaluation of the pelvis is notable for extensive sigmoid diverticulosis. There are suspected circumferential thickening of the sigmoid colon with subtle pericolonic inflammatory changes, suspicious for an acute sigmoid diverticulitis. There is a collection of air and fluid along the left lateral aspect of the sigmoid colon, measuring approximately 3.9 x 3.9 x 5.0 cm in AP, transverse and craniocaudal dimensions respectively. This could reflect an organizing fluid collection in the setting of a suspected perforation of the sigmoid colon. There is moderate gaseous distention of the stomach. Abdominal and pelvic bowel loops otherwise appear to be normal in caliber, without findings suggestive of small bowel obstruction or ileus. ABDOMINAL WALL: No significant hernia is appreciated. LYMPH NODES: No significant abdominal or pelvic adenopathy. VASCULAR: Extensive atherosclerosis of the abdominal aorta and its branching vessels, without aneurysmal dilatation. Limited evaluation for vascular patency, given lack of intravenous contrast. PELVIC VISCERA: No adnexal masses. OSSEOUS STRUCTURES: Demineralization of the visualized bones. No acute vertebral compression deformities. Chronic appearing compression deformity involving the T12 vertebral body with vertebral plana configuration of the T12 vertebral body and retropulsion of the posterior cortex of T12 into the spinal canal. IMPRESSION: 1. Scattered foci of free air throughout the abdomen and pelvis, notably within the anterior abdomen, abutting the stomach and liver. There are also scattered foci of free intraperitoneal air within the central pelvis. Given scattered sigmoid diverticulosis as well as secondary signs suspicious for an acute sigmoid diverticulitis, primary diagnostic consideration is for a perforated sigmoid diverticulitis. There is a questionable collection of air and fluid along the left lateral aspect of the inflamed sigmoid colon measuring 3.9 x 3.9 x 5.0 cm. This could reflect organizing fluid/abscess within the central pelvis. 2. Small bilateral pleural effusions. This critical result was discussed with Dr. Mae Madison at 5:38 PM on 11/09/2016 and it was ascertained that the content and urgency of the report was understood at the time of direct communication.
[2016-11-09 19:43] VITALS: BP 108/0
[2016-11-09 19:51] LABS: PT 14.2 SEC (9.4-12.5); PTT 29 SEC (25-37)
--- NOTE | 2016-11-09 20:02 | Cons- Cardiology ---
General Information and HPI Consulting Request Date of Consult: 11/09/16 Requested By: ZIYAD RUBIO Reason for Consult: Perforated diverticulum and elevated troponin I. Source of Information: old records Exam Limitations: unable to give history, clinical condition History of Present Illness: Mrs. Renata Cruz is an 81-year-old female resident SNF resident who was transferred from her facility for abdominal distention and who was discovered to have a perforated sigmoid diverticulum, as well as, a troponin I OF 8.24ng/ml. Mrs. Cruz has a history of hypertension, previous heart failure, gastroesophageal reflux disease, benign positional vertigo, s/p thyroidectomy on replacement therapy, rheumatoid arthritis, polymyositis, frequent falls and questionable syncope, recent cellulitis managed at [facility] with a completed course of antimicrobial therapy, and a more recent evaluation at [facility] for abnormal LFTs of mechanical fall. During her last hospitalization here she had an echocardiogram (10/28/2016) that while a technically difficult study revealed a normal size left ventricle with mild to moderate concentric left ventricular hypertrophy and normal systolic function, fibrocalcific degeneration of the aortic valve with no evidence of hemodynamically significant stenosis, moderate aortic regurgitation, at least moderate mitral regurgitation, moderate eccentric tricuspid regurgitation, mild pulmonic regurgitation, severe pulmonary hypertension with an estimated PA systolic pressure of 80 mmHg, dilatation of the IVC, moderate to severe left atrial enlargement left pleural effusion, and mild dilatation of the left heart chambers. Allergies/Medications Allergies: Coded Allergies: NO KNOWN ALLERGIES (10/27/16) Home Med List: Calcium Citrate/Vitamin D3 (Citracal + D Maximum Caplet) 315 MG-250 UNIT TABLET 1 TAB PO BID HEALTH SUPPLEMENT (Reported) Famotidine (Pepcid) 20 MG TABLET 1 TAB PO BID HEARTBURN (Reported) Ferrous Sulfate (High Potency Iron) 134 MG (27 MG) TABLET 65 MG PO D HEALTH SUPPLEMENT (Reported) Levothyroxine Sodium (Synthroid) 50 MCG TABLET 0.05 MG PO DAILY AC Hypothyroidism Prednisone 5 MG TABLET 1 TAB PO BID HEALTH SUPPLEMENT (Reported) Current Medications: Current Medications Sig/Jens Start time Last Medication Dose Route Stop Time Status Admin Acetaminophen 0 .STK-MED ONE 11/09 184 DC IV Acetaminophen 1,000 MG ONCE ONE 11/09 1830 DC 11/09 N/A 1 UNIT IV 11/09 1843 1854 Aspirin 325 MG ONCE ONE 11/09 1745 CAN PO 11/09 174 Ceftazidime 0 .STK-MED ONE 11/09 1759 DC .ROUTE Ceftazidime 1,000 MG ONCE ONE 11/09 1715 DC 11/09 IV 11/09 1716 1829 Metronidazole 500 MG ONCE ONE 11/09 1800 DC 11/09 N/A 1 UNIT IV 11/09 1859 1829 Sodium Chloride 1,000 ML ONCE ONE 11/09 1745 DC 11/09 IV 11/10 0024 1752 Vancomycin HCl 0 .STK-MED ONE 11/09 175 DC .ROUTE Vancomycin HCl 1,000 MG ONCE ONE 11/09 1715 DC 11/09 Dextrose/Water 250 ML IV 11/09 1814 1854 Review of Systems Review of Systems: Unobtainable. Past History Travel History Traveled to [place] past 21 day No Medical History Neurological: dementia Cardiovascular: CHF, hypertension Gastrointestinal: GERD Musculoskeletal: CELLULITIS Endocrine: hypothyroidism Surgical History Surgical History: unobtainable Psychosocial History ETOH Use: 6 Illicit Drug Use: UTD Exam & Diagnostic Data Vital Signs and I&O Vital Signs Date Time Temp Pulse Resp B/P Pulse O2 O2 Flow FiO2 Ox Delivery Rate 11/09 174 99.4 109 16 114/57 97 Nasal 3.0L Cannula 11/09 1721 99.8 102 115/56 11/09 1610 Nasal 3.0L Cannula 11/09 1603 99.5 109 20 134/81 97 Nasal 3.0L Cannula Intake & Output 11/09 1600 11/09 0800 11/09 0000 11/08 1600 11/08 0800 11/08 0000 Intake Total Output Total Balance Patient 88 lb Weight Physical Exam: Ill, pale appearing elderly female who is lethargic and minimally verbal with nasal oxygen in place. Vital signs: See above. HEENT: Normocephalic, slightly dry mucous membranes. Neck: No JVD, transmitted systolic murmur versus left bruit. Lungs: Decreased breath sounds with poor inspiratory effort. Heart: S1, S2 with soft (grade 1-2/6 systolic murmur. Abdomen: Distended, tense, decreased bowel sounds. Extremities: Trace edema. Labs/Mike Results: Laboratory Tests 11/09 11/09 1654 1619 Chemistry Sodium (137 - 145 mmol/L) 133 L Potassium (3.5 - 5.1 mmol/L) 5.7 H Chloride (98 - 107 mmol/L) 97 L Carbon Dioxide (22 - 30 mmol/L) 24 Anion Gap (5 - 16) 13 BUN (7 - 17 mg/dL) 46 H Creatinine (0.5 - 1.0 mg/dL) 1.8 H Estimated GFR (>60 ml/min) 27 L BUN/Creatinine Ratio (7 - 25 %) 25.6 H Glucose (65 - 99 mg/dL) 71 Lactic Acid (0.7 - 2.1 mmol/L) 6.0 H Calcium (8.4 - 10.2 mg/dL) 7.9 L Total Bilirubin (0.2 - 1.3 mg/dL) 1.0 AST (14 - 36 U/L) 234 H ALT (9 - 52 U/L) 126 H Alkaline Phosphatase (<127 U/L) 123 Troponin I (< 0.11 ng/ml) 8.24 *H Total Protein (6.3 - 8.2 g/dL) 5.9 L Albumin (3.5 - 5.0 g/dL) 2.6 L Globulin (1.9 - 4.2 gm/dL) 3.3 Albumin/Globulin Ratio (1.1 - 2.2 %) 0.8 L Hematology CBC w Diff MAN DIFF ORDERED WBC (4.8 - 10.8 /CUMM) 4.3 L RBC (4.20 - 5.40 /CUMM) 3.53 L Hgb (12.0 - 16.0 G/DL) 10.3 L Hct (37 - 47 %) 32.3 L MCV (81.0 - 99.0 FL) 91.4 MCH (27.0 - 31.0 PG) 29.1 RDW (11.5 - 14.5 %) 19.4 H Plt Count (130 - 400 /CUMM) 314 MPV (7.4 - 10.4 FL) 8.9 Gran % (42.2 - 75.2 %) 86.1 H Lymphocytes % (20.5 - 51.1 %) 11.3 L Monocytes % (1.7 - 9.3 %) 2.3 Eosinophils % (0 - 5 %) 0.2 Basophils % (0.0 - 2.0 %) 0.1 Absolute Granulocytes (1.4 - 6.5 /CUMM) 3.4 Segmented Neutrophils (42.2 - 75.2 %) 48 Band Neutrophils (0.0 - 5.0 %) 27 H Absolute Lymphocytes (1.2 - 3.4 /CUMM) 0.4 L Lymphocytes (20.5 - 51.1 %) 14 L Monocytes (1.7 - 9.3 %) 3 Absolute Monocytes (0.10 - 0.60 /CUMM) 0.1 L Absolute Eosinophils (0.0 - 0.7 /CUMM) 0 Absolute Basophils (0.0 - 0.2 /CUMM) 0 Metamyelocytes (0.0 - 1.0 %) 8 H Nucleated RBCs (0.0 - 0.0 /100WBC) 4 H Platelet Estimate (ADEQUATE) ADEQUATE Polychromasia 1+ Basophilic Stippling 1+ Anisocytosis 1+ Macrocytic Cells 1+ PUBS MCHC (33.0 - 37.0 G/DL) 31.9 L Urines Urinalysis MOD H Urine Color (YEL,AMB,STR) YEL Urine Clarity (CLEAR) CLEAR Urine pH (5.0 - 8.0) 6.0 Ur Specific [place] (1.001 - 1.035) 1.025 Urine Protein (NEG,<30 MG/DL) 100 H Urine Ketones (NEG) NEG Urine Nitrite (NEG) NEG Urine Bilirubin (NEG) NEG Urine Urobilinogen (0.1 - 1.0 EU/dl) 0.2 Ur Leukocyte Esterase (NEG) NEG Ur Microscopic SEDIMENT EXAMINED Urine RBC (0 - 5 /HPF) RARE Urine WBC (0 - 2 /HPF) RARE Ur Epithelial Cells (NONE,FEW) RARE Urine Hemoglobin (NEG) NEG Urine Glucose (N MG/DL) NEG Diagnostic Data EKG Results Is 11/09/2016) sinus tachycardia, multiple APCs, probable left atrial abnormality, and abnormal precordial R wave progression, consider indeterminate age anterior wall myocardial infarction. CXR Results (11/09/2016) New patchy right basilar opacity and probable small pleural effusion. Increased interstitial prominence in the right lung compared to prior. Appearance may reflect worsening asymmetric edema; developing right basilar aspiration/pneumonia is also a possibility in the proper clinical setting. Other Results CT abdomen/pelvis (11/09/2016) Scattered foci of free air throughout the abdomen and pelvis, notably within the anterior abdomen, abutting the stomach and liver. There are also scattered foci of free intraperitoneal air within the central pelvis. Given scattered sigmoid diverticulosis as well as secondary signs suspicious for an acute sigmoid diverticulitis, primary diagnostic consideration is for a perforated sigmoid diverticulitis. There is a questionable collection of air and fluid along the left lateral aspect of the inflamed sigmoid colon measuring 3.9 x 3.9 x 5.0 cm. This could reflect organizing fluid/abscess within the central pelvis. Small bilateral pleural effusions. Assessment/Plan Assessment/Plan Critically ill elderly female with multiple medical problems, as outlined above, and including diastolic heart failure secondary to left ventricular hypertrophy from long-standing hypertension who presents with a perforated sigmoid diverticulum, acute kidney injury with hyperkalemia, and an elevated troponin I who is in need of urgent surgery. Fortunately, preserved left ventricular systolic function was documented recently and at least at this time her CXR does not appear consistent with heart failure. Of greatest concern, is the fact that she has impending sepsis with a very high likelihood of hemodynamic instability. Her electrocardiogram does not, at this time, suggest an acute coronary syndrome and it is possible that her troponin I elevation is on the basis of demand ischemia (critical illness with sepsis, tachycardia, left ventricular hypertrophy, etc.) acute on chronic kidney injury, etc. However, given her age, risk factors, previous heart failure, etc. underlying coronary artery disease is likely present. She is clearly a very high risk surgical candidate, but without surgery any chance of survival is unlikely and this needs to be discussed with family members if available. Would therefore proceed with the recommended surgery. Postoperative ICU care, obtain postoperative electrocardiograms, follow-up troponins, etc. Consult Acknowledgment - Thank you for your consult request.
--- NOTE | 2016-11-09 20:15 | History & Physical ---
General Information and HPI Source of Information: family (son ), old records Exam Limitations: unable to give history, clinical condition History of Present Illness: History provided by EMS, old records, and son after his arrival to ED. Patient is an 81yo F brought to [facility] ED from [facility]. She was found to be confused, lethargic, and with a distended abdomen. She was also found to be tachycardic and mildy tachypnic. Upon arrival to ED she was pale and not responsive to questions and not following commands. CT scan showed free air in the abdomen without evidence of origin. Per son patient is normally responsive and following commands and recognizes him. He noticed a change in her mental status about 1.5 weeks ago. Per son she has no prior abdominal surgeries to his knowledge. She has been relatively healthy up to this point. Allergies/Medications Allergies: Coded Allergies: NO KNOWN ALLERGIES (10/27/16) Home Med list Calcium Citrate/Vitamin D3 (Citracal + D Maximum Caplet) 315 MG-250 UNIT TABLET 1 TAB PO BID HEALTH SUPPLEMENT (Reported) Famotidine (Pepcid) 20 MG TABLET 1 TAB PO BID HEARTBURN (Reported) Ferrous Sulfate (High Potency Iron) 134 MG (27 MG) TABLET 65 MG PO D HEALTH SUPPLEMENT (Reported) Levothyroxine Sodium (Synthroid) 50 MCG TABLET 0.05 MG PO DAILY AC Hypothyroidism Prednisone 5 MG TABLET 1 TAB PO BID HEALTH SUPPLEMENT (Reported) Past History Travel History Traveled to [place] past 21 day No Medical History Neurological: dementia Cardiovascular: CHF, hypertension Gastrointestinal: GERD Musculoskeletal: CELLULITIS Endocrine: hypothyroidism Surgical History Surgical History: unobtainable Past Family/Social History Psychosocial History ETOH Use: 6 Illicit Drug Use: UTD Review of Systems Review of Systems Constitutional: Reports: see HPI (unable to obtain). Comments Unable to obtain Exam & Diagnostic Data Last 24 Hrs of Vital Signs/I&O Vital Signs Date Time Temp Pulse Resp B/P Pulse O2 O2 Flow FiO2 Ox Delivery Rate 11/09 194 108/0 11/09 192 99.1 99 24 86/46 94 Nasal 3.0L Cannula 11/09 1744 99.4 109 16 114/57 97 Nasal 3.0L Cannula 11/09 1721 99.8 102 115/56 11/09 1610 Nasal 3.0L Cannula 11/09 1603 99.5 109 20 134/81 97 Nasal 3.0L Cannula Intake & Output 11/09 1600 11/09 0800 11/09 0000 Intake Total Output Total Balance Patient 88 lb Weight Physical Exam General Appearance Alert, Moderate Distress, Unresponsive to verbal commands Skin jaundice, pale, skin breakdown in BLE extremities, chronic appearing HEENT Atraumatic, mucous membranes dry. Mild scleral icterus. Neck Supple Cardiovascular Regular Rate Lungs Tachynea, decreased breathsounds bilateral bases Abdomen Distended, Firm, Guarding, Tympanic Extremities No Edema, Mild cyanosis, 1+ pulses DP BLE Last 24 Hrs of Labs/Mike: Laboratory Tests 11/09/16 194: Lactic Acid Pending 11/09/16 1654: Urinalysis MOD H, Urine Color YEL, Urine Clarity CLEAR, Urine pH 6.0, Ur Specific [place] 1.025, Urine Protein 100 H, Urine Ketones NEG, Urine Nitrite NEG, Urine Bilirubin NEG, Urine Urobilinogen 0.2, Ur Leukocyte Esterase NEG, Ur Microscopic SEDIMENT EXAMINED, Urine RBC RARE, Urine WBC RARE, Ur Epithelial Cells RARE, Urine Hemoglobin NEG, Urine Glucose NEG 11/09/16 1619: Anion Gap 13, Estimated GFR 27 L, BUN/Creatinine Ratio 25.6 H, Glucose 71, Lactic Acid 6.0 H, Calcium 7.9 L, Total Bilirubin 1.0, AST 234 H, ALT 126 H, Alkaline Phosphatase 123, Troponin I 8.24 *H, Total Protein 5.9 L, Albumin 2.6 L, Globulin 3.3, Albumin/Globulin Ratio 0.8 L, PT 14.2 H, INR 1.36 H, APTT 29 , CBC w Diff MAN DIFF ORDERED, RBC 3.53 L, MCV 91.4, MCH 29.1, RDW 19.4 H, MPV 8.9, Gran % 86.1 H, Lymphocytes % 11.3 L, Monocytes % 2.3, Eosinophils % 0.2, Basophils % 0.1, Absolute Granulocytes 3.4, Segmented Neutrophils 48, Band Neutrophils 27 H, Absolute Lymphocytes 0.4 L, Lymphocytes 14 L, Monocytes 3, Absolute Monocytes 0.1 L, Absolute Eosinophils 0, Absolute Basophils 0, Metamyelocytes 8 H, Nucleated RBCs 4 H, Platelet Estimate ADEQUATE, Polychromasia 1+, Basophilic Stippling 1+, Anisocytosis 1+, Macrocytic Cells 1+, PUBS MCHC 31.9 L Microbiology 11/09 1623 BLOOD: Blood Culture - RECD 11/09 1620 BLOOD: Blood Culture - RECD Diagnostic Data EKG Results Is 11/09/2016) sinus tachycardia, multiple APCs, probable left atrial abnormality, and abnormal precordial R wave progression, consider indeterminate age anterior wall myocardial infarction. CXR Results (11/09/2016) New patchy right basilar opacity and probable small pleural effusion. Increased interstitial prominence in the right lung compared to prior. Appearance may reflect worsening asymmetric edema; developing right basilar aspiration/pneumonia is also a possibility in the proper clinical setting. Other Results CT abdomen/pelvis (11/09/2016) Scattered foci of free air throughout the abdomen and pelvis, notably within the anterior abdomen, abutting the stomach and liver. There are also scattered foci of free intraperitoneal air within the central pelvis. Given scattered sigmoid diverticulosis as well as secondary signs suspicious for an acute sigmoid diverticulitis, primary diagnostic consideration is for a perforated sigmoid diverticulitis. There is a questionable collection of air and fluid along the left lateral aspect of the inflamed sigmoid colon measuring 3.9 x 3.9 x 5.0 cm. This could reflect organizing fluid/abscess within the central pelvis. Small bilateral pleural effusions. Assessment/Plan Assessment: Patient is an 81yo F in critical condition with free air in the abdomen. She is septic with elevated lactic acid. Elevated troponin may be demand ischemia but cardiac event not ruled out by cardiology. Dr. Raf Ibrahim saw patient and spoke with son at bedside in ED. Son agreed to continue with surgery despite high risk and high chance that patient would not survive surgery or postoperative care. Update. During communication with OR staff to ready the OR the patient coded in ED in which she was pronounced. Dr. Ibrahim to addend. As Ranked By This Provider Problem List: 1. Perforated bowel Core Measures/Miscellaneous Acute Coronary Syndrome ACS Diagnosis: No Cerebrovascular Accident CVA/TIA Diagnosis: No Congestive Heart Failure CHF Diagnosis: No Venous Thromboembolism VTE Risk Factors: Age > 40 VTE Prophylaxis Ordered Inpt: Mech & Pharm No Mech VTE prophylaxis d/t: No contraindications No VTE Pharm Prophylaxis d/t: No contraindications VTE Diagnosis: No VTE Type: NONE VTE Confirmed by (Test): NONE Severe Sepsis Severe Sepsis Present: Yes Septic Shock Septic Shock Present: Yes Miscellaneous Documentation Attending Case Discussed With: Dr. Raf Ibrahim M.D. Primary Care Physician: CONTRERAS COLON MD Patient sees these Specialists Unknown Level of Patient Care: Critical Care (CRI)
--- NOTE | 2016-11-09 20:48 | PN- General Surgery ---
Surgical Brief Attending Note Brief Attending Note: I was consulted to by the emergency room this evening at approximately 6:30 PM for this very ill 81-year-old female who presented emergency room lethargic and was obviously dehydrated and septic. The patient was evaluated by the ER staff initially underwent a CT scan of her head and chest x-ray medicine was called. She then underwent a CAT scan of her abdomen and pelvis as her renal function was altered her lactate was elevated to 6 her troponins were elevated to 8 Cardiology was consult to the patient was hydrated and the CT findings were consistent with free air. Came into the emergency room and spoke to the pts son at bedside and I examined the pt as well and agree with the Surgical PA findings. Her son the only child was completely reasonable as to prognosis and expectations but felt that if there was any small chance that his mother may survive with an operation and improve that he would like to give her that chance. She is unable to make any decisions for herself at this time due to her lethargy and was showing signs of severe urosepsis including beginning to drop her blood pressure. In the time. The son and I had a discussion and agreed that her mortality was very high, he still elected and I agreed to give her a chance at surgery explained to him that she could have ischemic bowel perforated ulcer or bowel and given the other lab findings that she could have a respiratory or cardiac arrest in the operating room. As we began to prepare the op operating room and I was speaking anesthesia where notified from the emergency room approximately 10 minutes after I had spoken the son that the patient went to cardiac arrest. Dr. Markham I went to the emergency room to check on the status the patient although the code was unsuccessful carried out by the ER personnel prior to arrival and the patient was pronounced
== END 2016-11-09 20:15 | disposition expired ==
LOC: ERH 15:51 → ERHI 17:11 → ERH 17:11 → CANBEDREQ 11-10 12:11
PROVIDERS: Physician Assistant
DX: J18.9 Pneumonia, unspecified organism (principal); R74.0 Nonspecific elevation of levels of transaminase and lactic acid dehydrogenase [LDH]; K63.1 Perforation of intestine (nontraumatic); R77.8 Other specified abnormalities of plasma proteins
CPT/HCPCS: 1387; 74176; 80307; 81001; 87040; 87071; 87147; 87804; 87804-59; 93005; 93010; 94799; 96361; 96365; 96375; 99291; J0131; J0713; J3370; J7060